=== PATIENT | female | born 2005 | race Two or more races ===

== ENCOUNTER 2025-03-19 21:30 | Emergency (ER) | payer MEDICAID, SELFPAY ==
[2025-03-19 21:32] VITALS: BMI 21.6
--- NOTE | 2025-03-19 21:45 | PC.NURSE ---
no answer in lobby when called for vital signs
--- NOTE | 2025-03-19 22:00 | PC.NURSE ---
no answer in lobby when called for vital signs
--- NOTE | 2025-03-19 22:23 | PC.NURSE ---
no answer in lobby when called for vital signs
[2025-03-19 22:36] VITALS: BP 102/66; PULSE 88; RESP 18; TEMP 36.9; O2SAT 99
[2025-03-19] MEDS: MethylPREDNISolone SOD SUCC 62.5 MG/ML 2ML VIAL 125 MG IM (23:04)
[2025-03-19] MEDS: DiphenhydrAMINE INJ 50 MG/ML VIAL 25 MG IM (23:04)
[2025-03-19] MEDS: FAMOTIDINE 20 MG TABLET 40 MG PO (23:05)
--- NOTE | 2025-03-19 23:26 | EDNOTE_ITS ---
ED Allergic Reaction RME/HPI General Chief complaint: Allergic Reaction Stated complaint: RASH AND HIVES EVERYWHERE Time Seen by Provider: 03/19/25 22:12 Arrival date/time: 03/19/25 21:30 This is a case of 19 year old female came in with generalized maculopapular rash all over the body since last night denies shortness of breath able to swallow no drooling of saliva no facial no throat swelling Limitations: no limitations Related Data Previous Rx's ?Medication ?Instructions ?Recorded diphenhydramine HCl 25 mg capsule 25 mg PO Q8H PRN all ergic reaction 03/19/25 (Benadryl) #20 caps famotidine 20 mg tablet (Pepcid) 20 mg PO BID 10 days #20 tabs 03/19/25 prednisone 20 mg tablet 20 mg PO QDAY 5 days #5 tabs 03/19/25 Allergies Allergy/AdvReac Type Severity Reaction Status Date / Time apricot Allergy Swelling Verified 03/19/25 21:32 of Lip/Tongue/Throat WASP Allergy SWELLING Uncoded 03/19/25 21:32 Review of Systems Review of Systems Systems Reviewed: All systems reviewed, normal except as documented Constitutional Constitutional: Reports system reviewed and no additional complaints, except as documented, Reports as per HPI, Denies chills and Denies fever(s) ENT Ears, Nose, Mouth, and Throat: Reports system reviewed and no additional complaints, except as documented and Reports as per HPI Cardiovascular Cardiovascular: Reports system reviewed and no additional complaints, except as documented, Denies chest pain and Denies dyspnea Respiratory Respiratory: Reports system reviewed and no additional complaints, except as documented, Reports as per HPI, Denies chest congestion, Denies cough and Denies dyspnea Musculoskeletal Musculoskeletal: Reports system reviewed and no additional complaints, except as documented and Reports as per HPI Integumentary/Breasts Skin/Breast: Reports rash Neurologic Neurologic: Reports system reviewed and no additional complaints, except as documented and Reports as per HPI Past Medical History Past Medical History NEUROLOGIC: Negative Neurological Disorders CARDIAC: Negative Cardiac Disorders GASTROINTESTINAL: Negative Gastrointestinal Disorders GENITOURINARY: Negative Genitourinary Disorders MUSCULOSKELETAL: Negative Musculoskeletal Disorders ENDOCRINE: Negative Endocrine Disorders Social History SMOKING STATUS: Never smoker ED Exam General Limitations: Present no limitations General appearance: Present alert and in no apparent distress; Absent appears intoxicated, anxious, lethargic or in distress Head Head exam: Present atraumatic, normocephalic and normal inspection Eye Eye exam: Present normal appearance, PERRL and EOMI; Absent conjunctival injection or periorbital swelling ENT ENT exam: Present normal exam, normal oropharynx, mucous membranes moist and other (no facial nor throat swelling) Neck Neck exam: Present normal inspection, full ROM and trachea midline; Absent tenderness or meningismus Chest Chest inspection: Present normal inspection and symmetric chest wall rise Respiratory Respiratory exam: Present normal lung sounds bilaterally; Absent respiratory distress, wheezes, stridor, accessory muscle use or prolonged expiratory phase Cardiovascular Cardiovascular exam: Present regular rate, normal rhythm and normal heart sounds Abdominal Exam Abdominal exam: Present soft and normal bowel sounds Extremities Exam Extremities exam: Present normal inspection and full ROM Back Exam Back exam: Present normal inspection and full ROM Neurological Exam Neurological exam: Present alert, oriented X3, CN II-XII intact, normal gait and reflexes normal; Absent motor sensory deficit Psychiatric Psychiatric exam: Present normal affect and normal mood Skin Skin exam: Present warm, dry, intact and normal color Expanded Skin Exam Description: Present erythematous, papular, urticarial and other (generalized) Course Quality Measures none Orders Category Date Time Status DiphenhydrAMINE INJ [Benadryl Inj] Med 03/19/25 22:41 Discontinued 25 mg IM X1 ONE Famotidine [Pepcid] Med 03/19/25 22:41 Discontinued 40 mg PO X1 ONE MethylPREDNISolone.* [SoluMEDROL Inj] Med 03/19/25 22:41 Discontinued 125 mg IM X1 ONE Vital Signs Vital signs: Vital Signs Temperature 98.5 F 03/19/25 22:36 Pulse Rate 88 03/19/25 22:36 Respiratory Rate 18 03/19/25 22:36 Blood Pressure 102/66 03/19/25 22:36 Pulse Oximetry (%) 99 03/19/25 22:36 Oxygen Delivery Method Room Air 03/19/25 22:36 Oxygen saturation 99% room air wnl Allergic Reaction MDM Narrative MDM Narrative:: This is a case of 19 year old female came in with generalized maculopapular rash all over the body since last night denies shortness of breath able to swallow no drooling of saliva no facial no throat swelling Physicial exam showed normal vital signs patient is not tacycardic not tacypneic blood pressure stable afebrile not hypoxic patient no apparent Generalized maculopapular urticaria rash is suggestive of allergy urticaria no facial or throat signs and symptoms of angioedema, anaphylaxis glossitis pain lab numbers no wheezing no stridor based on my physical exam patient symtoms suggestive of allergic urticaria patient was given Benadryl Pepcid and Solu-Medrol after 30 minutes patient was reassessed patient condition markedly improved that she has subsided no swelling no shortness of breath treatement Benadryl Pepcid and prednisone to start tomorrow patient will be referred to alelrgy specialist for alelrgy testing patient was disharged with comforatble conditionwith stable condition and pain fee. Walking stable Patient verbalized no further complain with the proposed management plan including the need to follow up with his/her primary care physician and and any specialist fif applicable. Discussed patient for any urgent condition or worsening sx He she needed to go to Emergency room of call 911 Patient is acknowledge the responsibility to follow up as instructed and to monitor his/her symptoms For any persistnce of the symtoms for more than 3-5 days retrun precaution advised Discussed the result of thetest and was given printed dsicahrge instruction Patient data External records reviewed:: [facility] previous records Clinical information provided by:: patient and family Social determinants that could affect healthcare access:: none Patient has the following chronic illnesses:: none How is presenting disease/condition affected by chronic disease/condition?: no c hronic disease Evaluation data The following diagnostics were reviewed and interpreted by me:: other (specify) (none) Lab and/or radiology exams considered but not ordered:: none Interpretation Summary: none Medications / Prescriptions Medications or Prescriptions considered but not ordered:: given Medication administrations:: Medication Administration History Discontinued Medications Diphenhydramine HCl (Diphenhydramine Inj 50 Mg/Ml Vial) 25 mg IM X1 ONE Stop: 03/19/25 22:42 Last Admin: 03/19/25 23:04 Dose: 25 mg Documented By: Famotidine (Famotidine 20 Mg Tablet) 40 mg PO X1 ONE Stop: 03/19/25 22:42 Last Admin: 03/19/25 23:05 Dose: 40 mg Documented By: Methylprednisolone Sodium Succinate (Methylprednisolone Sod Succ 62.5 Mg/Ml 2ml Vial) 125 mg IM X1 ONE Stop: 03/19/25 22:42 Last Admin: 03/19/25 23:04 Dose: 125 mg Documented By: given Consultations Consultation(s) initiated? (list below): No Diagnosis Differential Diagnosis allergic reaction: allergic reaction, contact dermatitis and urticaria Most likely diagnosis given after review of the tests above:: allergic urticaria Admission Indicated Admission indicated?: not indicated Explain why admission is indicated or not indicated:: not indicated Admission Request Was there a request for admission?: No Disposition Plan Disposition Plan: Discharge Discharge Attestation Discharge Attestation: The patient and all family members were given an opportunity to ask questions and understood the discharge instructions. Discharge instructions specifically effects, indications for sooner follow up or return to the emergency department, and the expected course of current diagnosis. Patient condition: Stable Discharge Plan Plan Patient Disposition: HOME (Self Care) Patient condition on transfer: Stable Prescriptions/Referrals Prescriptions/Med Rec: New prednisone 20 mg tablet 20 mg PO QDAY 5 Days Qty: 5 0RF Rx Instructions: start tomorrow diphenhydramine HCl [Benadryl] 25 mg capsule 25 mg PO Q8H PRN (Reason: allergic reaction) Qty: 20 0RF famotidine [Pepcid] 20 mg tablet 20 mg PO BID 10 Days Qty: 20 0RF Referrals: Margarito Mar MD [Physician] - 03/21/25 (for allergy testing) Problem List Clinical Impression: Allergic reaction, Urticaria Patient/Caregiver Discharge Instructions Education Materials: ED Hives (Adult) Additional Instructions: it is important to see customer energy specialist for allergy testing for any recurrence of the sx persistnce sx in 2 days return to er or call 911 ffup with pcp in 2 dyas for reevalaution Print Language: Khmer Stand Alone Forms: Alyssa Award Info., Work/School Release, Patient Portal Info Letter PA/URGENT CARE Supervising Physician NICANOR/URGENT CARE Supervising Physician: dr laura
== END 2025-03-20 00:30 | disposition home or self-care (01) ==
PROVIDERS: Emergency Provider Emergency Medicine
DX: L50.0 Allergic urticaria (principal)
CPT/HCPCS: 96372; 99283; J1200; J2919; A9270

== ENCOUNTER 2025-04-21 21:27 | Emergency (ER) | payer MEDICAID, SELFPAY ==
[2025-04-21 21:28] VITALS: BMI 21.2
[2025-04-21 21:42] VITALS: BP 121/72; PULSE 84; RESP 16; TEMP 36.9; O2SAT 97
--- NOTE | 2025-04-21 21:43 | XR_ITS ---
Examination: Thoracolumbar spine 2 views TECHNIQUE: AP lateral thoracolumbar spine 2 views Date and time: April 21, 2025 10:44 PM INDICATIONS: Left lower back pain 1 month FINDINGS: Satisfactory alignment lumbar vertebral bodies No lumbar fracture No significant lumbar disc narrowing No spondylolisthesis IMPRESSION: No lumbar fracture or arthritic change
--- NOTE | 2025-04-21 21:44 | EDNOTE_ITS ---
ED Back Injury Pain RME/HPI General Stated Complaint: BACK PAIN Time Seen by Provider: 04/21/25 21:35 Source: patient Arrival date/time: 04/21/25 21:27 This is a case of 19-year-old female with no medical history came in in the emergency room due to lower back pain on and off for 1 month denies any injury or trauma denies any radiating pain denies any numbness weakness tingling sensation or incontinence to urine or stool denies any fever chills denies any urinary symptoms Limitations: no limitations Related Data Previous Rx's ?Medication ?Instructions ?Recorded diphenhydramine HCl 25 mg capsule 25 mg PO Q8H PRN all ergic reaction 03/19/25 (Benadryl) #20 caps baclofen 10 mg tablet 10 mg PO BID PRN muscle spas m #10 04/21/25 tabs ibuprofen 600 mg tablet 600 mg PO Q6H PRN pain #20 t abs 04/21/25 Allergies Allergy/AdvReac Type Severity Reaction Status Date / Time apricot Allergy Swelling Verified 04/21/25 21:34 of Lip/Tongue/Throat WASP Allergy SWELLING Uncoded 04/21/25 21:34 Review of Systems Constitutional Constitutional: Reports system reviewed and no additional complaints, except as documented and Reports as per HPI ENT Ears, Nose, Mouth, and Throat: Denies neck pain Cardiovascular Cardiovascular: Reports system reviewed and no additional complaints, except as documented and Reports as per HPI Respiratory Respiratory: Reports system reviewed and no additional complaints, except as documented and Reports as per HPI Gastrointestinal Gastrointestinal: Reports system reviewed and no additional complaints, except as documented, Reports as per HPI, Denies abdominal pain, Denies loose stools, Denies nausea and Denies vomiting Genitourinary Genitourinary: Reports system reviewed and no additional complaints, except as documented, Reports as per HPI, Denies dysmenorrhea, Reports dyspareunia and Denies dysuria Musculoskeletal Musculoskeletal: Reports system reviewed and no additional complaints, except as documented, Reports as per HPI, Denies abnormal gait, Denies arthralgias, Denies atrophy, Denies back pain, Denies deformity, Denies joint swelling, Denies limited range of motion, Denies loss of height, Denies muscle cramps, Denies muscle weakness, Denies myalgias, Denies neck pain, Denies numbness, Denies radiating pain into limb and Denies stiffness Neurologic Neurologic: Reports system reviewed and no additional complaints, except as documented, Reports as per HPI, Denies abnormal gait and Denies numbness Past Medical History Past Medical History NEUROLOGIC: Negative Neurological Disorders CARDIAC: Negative Cardiac Disorders GASTROINTESTINAL: Negative Gastrointestinal Disorders GENITOURINARY: Negative Genitourinary Disorders MUSCULOSKELETAL: Negative Musculoskeletal Disorders ENDOCRINE: Negative Endocrine Disorders Social History SMOKING STATUS: Never smoker ED Exam General Limitations: Present no limitations General appearance: Present alert and in no apparent distress Head Head exam: Present atraumatic, normocephalic and normal inspection Eye Eye exam: Present normal appearance, PERRL and EOMI ENT ENT exam: Present normal exam, normal oropharynx and mucous membranes moist Neck Neck exam: Present normal inspection, full ROM and trachea midline Chest Chest inspection: Present normal inspection and symmetric chest wall rise; Absent tenderness, rash or abscess Respiratory Respiratory exam: Present normal lung sounds bilaterally; Absent respiratory distress, wheezes, stridor, accessory muscle use or prolonged expiratory phase Cardiovascular Cardiovascular exam: Present regular rate, normal rhythm and normal heart sounds Abdominal Exam Abdominal exam: Present soft, normal bowel sounds and pulsatile mass; Absent distention, tenderness, guarding, rebound, rigidity, diminished bowel sounds, hyperactive bowel sounds, hypoactive bowel sounds, organomegaly, trauma, psoas sign, obturator sign, Vela's sign or tenderness at McBurney's Point Extremities Exam Extremities exam: Present normal inspection and full ROM Back Exam Back exam: Present normal inspection, full ROM and tenderness (Mild tenderness to L1 L5 no paraspinal no para paravertebral tenderness steady gait straight leg exam is normal no crepitation no deformity noted); Absent CVA tenderness (R), CVA tenderness (L), muscle spasm, paraspinal tenderness, vertebral tenderness, rashes, sciatic notch tenderness (R), sciatic notch tenderness (L), straight leg raise (R) or straight leg raise (L) Neurological Exam Neurological exam: Present alert, oriented X3, CN II-XII intact, normal gait and reflexes normal; Absent motor sensory deficit Psychiatric Psychiatric exam: Present normal affect and normal mood Skin Skin exam: Present warm, dry, intact and normal color Course Quality Measures none Orders Category Date Time Status XR lumbar spine 2-3V Stat Exams 04/21/25 21:43 Taken HCG Qualitative,Urine Stat Lab 04/21/25 22:15 Completed Urinalysis Stat Lab 04/21/25 22:15 Completed Dexamethasone Inj [Decadron Inj] Med 04/21/25 23:09 Discontinued 10 mg IM X1 ONE Ketorolac Inj [Toradol Inj] Med 04/21/25 23:09 Discontinued 30 mg IM X1 ONE Vital Signs Vital signs: Vital Signs Temperature 98.4 F 04/21/25 21:42 Pulse Rate 84 04/21/25 21:42 Respiratory Rate 16 04/21/25 21:42 Blood Pressure 121/72 04/21/25 21:42 Pulse Oximetry (%) 97 04/21/25 21:42 Oxygen Delivery Method Room Air 04/21/25 21:42 Oxygen saturation 97% in room air Back Pain / Injury MDM Narrative MDM Narrative:: This is a case of 19-year-old female with no medical history came in in the emergency room due to lower back pain on and off for 1 month denies any injury or trauma denies any radiating pain denies any numbness weakness tingling sensation or incontinence to urine or stool denies any fever chills denies any urinary symptoms physical examination patient is awake alert oriented not in distress not toxic looking patient is afebrile not Tachycardic not tachypneic not hypoxic oxygen saturation is normal patient noted to have mild to moderate tenderness on the L1-L5 but no paraspinal no para paravertebral tenderness no crepitation no deformity no redness straight leg exam is normal steady gait no CVA tenderness x-ray showed no fracture no dislocation no subluxation patient is not urinalysis is normal at this point patient will be discharged as some back muscle spasm patient was given a Toradol IM injection and dexamethasone IM injection for pain and inflammation patient was prescribed with Motrin and muscle relaxant baclofen patient was advised to place ice pack and warm compress as needed for pain and follow-up with primary care physician in 2 days for reevaluation and for any worsening symptoms or any emergent concerns such as numbness weakness tingling sensation incontinence to urine or stool return to the ER immediately or call 911 at the time of exam no signs and symptoms of cauda equina no signs and symptoms of sepsis no signs and symptoms of dehydration Patient was discharged with comfortable condition walking with stable gait. Patient verbalized no further complains explained diagnosis and answered patient question. Patient is comfortable with the proposed management plan including the need to follow up with his/her primary care physician and any specialist if applicable Discussed patient for any urgent condition or worsening sx, He/She needed to go to emergency room immediately or call 911. Patient acknowledge the responsibility to follow up as instructed and to monitor her/his symptoms. For any persistence of the symptoms for more than 3-5 days return precaution advised. Discussed the result of the test and was given printed discharge instruction Patient data External records reviewed:: [facility] previous records Clinical information provided by:: patient Social determinants that could affect healthcare access:: none Patient has the following chronic illnesses:: None How is presenting disease/condition affected by chronic disease/condition?: no chronic disease Evaluation data The following diagnostics were reviewed and interpreted by me:: lab results and radiology exam(s) Lab and/or radiology exams considered but not ordered:: Reviewed Interpretation Summary: Reviewed Medications / Prescriptions Medications or Prescriptions considered but not ordered:: Given Medication administrations:: Medication Administration History Discontinued Medications Dexamethasone Sodium Phosphate (Dexamethasone Sod Phos Inj 10 Mg/Ml Vial) 10 mg IM X1 ONE Stop: 04/21/25 23:10 Ketorolac Tromethamine (Ketorolac Inj 60 Mg/2 Ml Vial) 30 mg IM X1 ONE Stop: 04/21/25 23:10 Given Consultations Consultation(s) initiated? (list below): No Diagnosis Differential diagnosis back pain/injury: other (Back muscle spasm) Most likely diagnosis given after review of the tests above:: Back muscle spasm Admission Indicated Admission indicated?: not indicated Explain why admission is indicated or not indicated:: Not indicated Admission Request Was there a request for admission?: No Admission Attestation Admission request attestation: Not indicated Disposition Plan Disposition Plan: Discharge Discharge Attestation Discharge Attestation: The patient and all family members were given an opportunity to ask questions an d understood the discharge instructions. Discharge instructions specifically effects, indications for sooner follow up or return to the emergency department, and the expected course of current diagnosis. Patient condition: Stable Discharge Plan Plan Patient Disposition: HOME (Self Care) Patient condition on transfer: Stable Prescriptions/Referrals Prescriptions/Med Rec: New ibuprofen 600 mg tablet 600 mg PO Q6H PRN (Reason: pain) Qty: 20 0RF baclofen 10 mg tablet 10 mg PO BID PRN (Reason: muscle spasm) Qty: 10 0RF Rx Instructions: No driving No Action diphenhydramine HCl [Benadryl] 25 mg capsule 25 mg PO Q8H PRN (Reason: allergic reaction) Qty: 20 0RF Referrals: Raul Matias MD [Primary Care Provider] - In 1 week Problem List Clinical Impression: Back muscle spasm Patient/Caregiver Discharge Instructions Education Materials: ED Back Spasm, No Trauma, ED Muscle Spasm Additional Instructions: Follow-up with your primary care physician in 2 days for reevaluation for any worsening symptoms or any emergent concerns such as numbness weakness tingling sensation incontinence to urinate or stool return to the emergency room immediately or call 911 ice pack and warm compress as needed for pain take your medication as directed Print Language: Vietnamese Stand Alone Forms: Alyssa Award Info., Patient Portal Info Letter PA/NOE Supervising Physician NICANOR/NOE Supervising Physician: dr burns
[2025-04-21 22:25] LABS: Collection Type, Urine Voided
[2025-04-21 22:33] LABS: HCG Qualitative,Urine Negative
[2025-04-21 22:39] LABS: Bilirubin,Urine Negative (Negative); Blood,Urine 3+ (Negative); Clarity,Urine Clear (Clear/Hazy); Color,Urine Yellow (Lt Yel-Yel); Glucose, Urine Negative (Negative); Hyaline Casts,Urine < 1 /hpf (0-1); Ketones,Urine Trace (Negative); Leukocyte Esterase,Urine Negative (Negative); Nitrite,Urine Negative (Negative); PH,Urine 6.5 (5.0-7.0); Protein,Urine 2+ (Neg - Trace); RBC,Urine 23 /hpf (0-3); Specific Gravity,Urine 1.049 (1.001-1.035); Squamous Epithelial Cell,Urine 3 /hpf (0-5); WBC,Urine 2 /hpf (0-5)
[2025-04-21] MEDS: DEXAMETHASONE SOD PHOS INJ 10 MG/ML VIAL IM (23:33)
[2025-04-21] MEDS: KETOROLAC INJ 60 MG/2 ML VIAL 30 MG IM (23:33)
== END 2025-04-21 23:49 | disposition home or self-care (01) ==
PROVIDERS: Nurse Practitioner Family; Emergency Provider Emergency Medicine; PCP Family Medicine
DX: M62.830 Muscle spasm of back (principal)
CPT/HCPCS: 72100; 81001; 81025; 96372; 99283; J1100; J1885

== ENCOUNTER 2025-08-23 10:30 | Outpatient (RCR) | payer MEDICAID, SELFPAY ==
--- NOTE | 2025-08-16 15:10 | PT.OIERPT ---
PT OP Initial Eval Patient Information Outpatient Physical Therapy Treatment Date: 08/16/25 Visit Reasons: back pain Medical Diagnosis: M54.42 Treatment Dx #1: Back Pain Treatment Dx #2: Left LE Pain Start of Care: 08/16/25 Date of Onset: March 2025 Smoking Status Smoking Status: Never smoker Initial Assessment Subjective: Pt is a 20 y/o female reports of back and left LE pain (05/09) [place] Pt still has intermittent pain adn numbness down the left leg. Pt's xray negative no MRI has been done. Pt has limitation with prolonged sitting, standing, chores, self care, lifting, cooking, walking, and performing recreational activities. Objective: L/S AROM: all motions are WFL except pain with end range extension and right sidebending Hip PROM: all motions are WNL Hip MMTs: grossly 3+/5 Special Test (+) SLR (+) slump Palpation: TTP left L4-L5 facets Assessment: Pt demonstrate back pain leading with possible discogenic involvement leading to difficulty with ADLs. Pt will benefit from physical therapy to improve mobility, core strength, and work on flexibility Short Term and Physician Relations Representative Goals 1) Increase L/S AROM WNL in 6 wks to be able to perform chores 2) Decrease back pain to 2/10 in 6 wks to be able to sit or stand longer than 30 mins 3) Increase core strength WFL in 6 wks to be able to perform recreational activities 4) Increase hip MMTs grossly to 4-/5 in 6 wks to be able to walk more than 30 mins 5) Indep with HEP Treatment Plan 1) Manual Therapy 2) Therapeutic Activities 3) Therapeutic Exercises 4) Modalities (ice, heat, traction) Frequency and Duration: 2 x wk for 6 wks Certification Dates: 08/16/25 to 11/16/25 Procedure Charges OP PT Eval Mod Complex 30 minutes: Yes
--- NOTE | 2025-08-21 09:54 | PT.ODAYNRPT ---
PT Outpatient Daily Note OP Daily Note Outpatient Physical Therapy Treatment Date: 08/21/25 Visit Reasons: back pain Subjective: Pt's back is okay, however, continues to experience pain. Objective: Please see flow chart for list of ther ex performed Assessment: supine heat helped patient tolerate exercises Plan: Continue with PT Length of Time (minutes) of Treatment: 30 Minutes Procedure Charges Therapeutic Exercise 30 minutes: Yes
--- NOTE | 2025-08-23 11:52 | PT.ODAYNRPT ---
PT Outpatient Daily Note OP Daily Note Outpatient Physical Therapy Treatment Date: 08/23/25 Visit Reasons: back pain Subjective: Pt's back was really sore after last session. Pt mentioned the nerve floss is what made the leg hurt more Objective: Please see flow chart for list of ther Assessment: tolerate exercises with minimal pain; patient encourage to complete nerve floss exercises today to alleviate radicular pain Plan: Continue with PT Length of Time (minutes) of Treatment: 30 Minutes Procedure Charges Therapeutic Exercise 30 minutes: Yes
== END 2025-08-30 23:59 | disposition home or self-care (01) ==
LOC: CPTX 10:30
PROVIDERS: PCP Registered Nurse; Referring Provider Registered Nurse; Visit Provider Registered Nurse
DX: M54.42 Lumbago with sciatica, left side (principal)
CPT/HCPCS: 97110; 97162

== ENCOUNTER 2025-09-09 13:00 | Outpatient (RCR) | payer MEDICAID, SELFPAY ==
--- NOTE | 2025-09-02 09:56 | PT.ODAYNRPT ---
PT Outpatient Daily Note OP Daily Note Outpatient Physical Therapy Treatment Date: 09/02/25 Visit Reasons: Back pain Subjective: Pt's back is the same and tough to get better since she has a little one to take care of. Pt continues to have intense pain where she needs to stop her activities; recently she had to sinker puller while driving. Pt has not experience leg pain lately. Objective: Please see flow chart for list of ther ex performed Assessment: minimal change in lumbar pain post STM; patient reports more muscle soreness post PT session and decline heat since it doesn't help with symptoms. Plan: Continue with PT Length of Time (minutes) of Treatment: 30 Minutes Procedure Charges Therapeutic Exercise 30 minutes: Yes
--- NOTE | 2025-09-04 09:48 | PT.ODAYNRPT ---
PT Outpatient Daily Note OP Daily Note Outpatient Physical Therapy Treatment Date: 09/04/25 Visit Reasons: Back pain Subjective: Pt's back was sore after last session but it felt a little better. Pt mentioned STM seems to help the pain and stiffness. Objective: Please see flow chart for list of ther ex performed Assessment: decrease pain reported post PT session. Pt's nerve floss modified to sitting with better tolerance to exercise Plan: Continue with PT Length of Time (minutes) of Treatment: 30 Minutes Procedure Charges Therapeutic Exercise 30 minutes: Yes
--- NOTE | 2025-09-09 14:07 | PT.ODAYNRPT ---
PT Outpatient Daily Note OP Daily Note Outpatient Physical Therapy Treatment Date: 09/09/25 Visit Reasons: Back pain Subjective: Pt reports back is hurting today, points to L low back region. Objective: Please see flow sheet for ther ex list. Assessment: Added interventions completed with minimal pain. Plan: Assess response to treatment., Length of Time (minutes) of Treatment: 30 Minutes Procedure Charges Therapeutic Exercise 30 minutes: Yes
--- NOTE | 2025-10-01 13:05 | PT.ODS1RPT ---
PT OP Progress/Discharge Note Date of Service: 10/01/25 Progress Note/DC Note Progress Note/Discharge Note: DC Note Patient Information Visit Reasons: Back pain Service Discharge Date: 10/01/25 Status Assessment: Pt has been seen for 5 visits (eval + 4 visits). Pt last treated on 09/09/25. Pt contact regarding follow up appts 10/01/25 and will like to be d/c from care. Pt did not meet set goals in therapy; thank you for your referrals
== END 2025-09-29 23:59 | disposition home or self-care (01) ==
LOC: CPTX 13:00
PROVIDERS: PCP Registered Nurse; Referring Provider Registered Nurse; Visit Provider Registered Nurse
DX: M54.42 Lumbago with sciatica, left side (principal); R26.2 Difficulty in walking, not elsewhere classified
CPT/HCPCS: 97110

== ENCOUNTER 2025-09-11 22:54 | Emergency (ER) | payer MEDICAID, SELFPAY ==
[2025-09-11 22:55] VITALS: BMI 21.6
[2025-09-11 23:21] VITALS: BP 115/71; PULSE 76; RESP 16; TEMP 37; O2SAT 97
--- NOTE | 2025-09-11 23:40 | EDNOTE_ITS ---
ED OB Contraction Preg RMI/HPI General Chief complaint: Vaginal Bleeding Stated complaint: VAGINAL BLEEDING, Time Seen by Provider: 09/11/25 23:25 Arrival date/time: 09/11/25 22:54 RME / HPI RME / HPI Narrative: CC: Vaginal Bleeding/ Patient is a 20-year-old female limited past medical history G2, P0 who presented to the emergency room with a chief complaint of vaginal bleeding that started this morning. Visiting her [employer] about 2 weeks ago and confirmed the testing positive in urine and serum. Patient stated she has had a previous testing positive with a home kit and shortly after experiencing vaginal bleeding as well and subsequently testing negative for . Patient stated she developed bilateral pelvic pain that is sharp and comes and goes. Last known. September 01, 2025. Patient did experience some vaginal discharge that was brown but not foul-smelling. Patient denied history of ectopic pregnancies. Two previous pads have been full. Denied history of STI. CBC CMP Beta hcg Rh vaginal US Related Data Previous Rx's ?Medication ?Instructions ?Recorded diphenhydramine HCl 25 mg capsule 25 mg PO Q8H PRN all ergic reaction 03/19/25 (Benadryl) #20 caps baclofen 10 mg tablet 10 mg PO BID PRN muscle spas m #10 04/21/25 tabs ibuprofen 600 mg tablet 600 mg PO Q6H PRN pain #20 t abs 04/21/25 Allergies Allergy/AdvReac Type Severity Reaction Status Date / Time apricot Allergy Swelling Verified 09/11/25 22:55 of Lip/Tongue/Throat WASP Allergy SWELLING Uncoded 09/11/25 22:55 Review of Systems Review of Systems Narrative Review of Systems: General appearance: NO weight change, NO fatigue, NO weakness, NO fever, NO chills, NO night sweats, No cough Skin: NO rash, NO itching, NO sores, NO moles HEENT: NO Trauma, NO nausea, NO vomiting, NO visual changes, NO blurry vision, NO double vision, NO tinnitus, NO vertigo, NO ear discharge, NO rhinorrhea, NO stuffiness, NO sneezing, NO allergy, NO epistaxis. NO Hoarseness, NO sore throat, NO swollen neck. Cardiac: NO Palpitations, NO dyspnea on exertion, NO orthopnea, NO paroxysmal nocturnal dyspnea, NO edema Respiratory: NO Shortness of Breath, NO Wheezing, NO Cough, NO Sputum, NO hemoptysis GI:NO appetite, NO nausea, NO vomiting, NO dysphagia, NO changes in bowel frequency, NO stool color, NO diarrhea, NO constipation, NO hemetemesis, NO hemorrhoids, NO melena, NO hematechezia, NO abdominal pain, NO jaundice Renal: NO frequency, NO hesitancy, NO urgency, NO hematuria, NO nocturia, NO incontinence MSK: NO muscle weakness, NO gout, NO arthritis, NO muscle stiffness Neuro: NO headaches, NO tremors, NO weakness, NO paralysis, NO seizures, NO loss of consciousness, NO numbness. Hem: NO anemia, NO easy bruising/bleeding, NO petechiae, NO purpura Endo: NO heat/cold intolerance, NO excessive sweating, NO polyuria, NO polydipsia, NO polyphagia, NO thyroid problems, NO diabetes Pysch: NO mood, NO anxiety, NO depression : Vaginal bleeding, brown discharge, not foul smelling ED Exam Narrative Physical exam: General Appearance: Alert & Oriented X3, well-nourished female who is lying in bed in no acute distress HEENT: Skull symmetrical and atraumatic. Conjunctivae pink and moist. Pupils equal, round, reactive to light and accommodation (PERRL). External ear without lesion or discharge. Straight, nares patient, mucosa pink, no discharge. Cardio: Normal Rate and Rhythm with S1 and S2 heart sounds. No murmurs or extra heart sounds auscultated. No bruits on carotid auscultation. No peripheral edema or cyanosis. Lungs: Symmetric with good expansion. Chest and back non-tender. Breath sounds vesicular without crackles, wheezing or rhonchi Abdomen: mild tenderness, Non-distended, Normal Reactive Bowel Sounds Neuro: Alert, cooperative, oriented to person, place, and time. Speech clear. CN grossly intact. Upper motor strength 5/5 and Lower motor strength 5/5. Sensation intact. W[employer] SORTER: spotting noted on vaginal area, spotting noted on pad, no lesions or ulcers noted Course Course Course Narrative: CBC CMP RH beta hcg vaginal us Quality Measures none Orders Category Date Time Status US OB <= 14 weeks fetus Stat Exams 09/12/25 00:00 Taken Beta HCG,Quantitative Stat Lab 09/11/25 23:28 Completed CBC Stat Lab 09/11/25 23:28 Completed CMP [Comprehensive Metabolic Panel] Stat Lab 09/11/25 23:28 Completed Rh Testing Only Stat Lab 09/11/25 23:32 Completed Urinalysis, C/S if Indicated Stat Lab 09/11/25 23:19 Completed Vital Signs Vital signs: Vital Signs Temperature 98.6 F 09/11/25 23:21 Pulse Rate 76 09/11/25 23:21 Respiratory Rate 16 09/11/25 23:21 Blood Pressure 115/71 09/11/25 23:21 Pulse Oximetry (%) 97 09/11/25 23:21 Oxygen Delivery Method Room Air 09/11/25 23:21 Vaginal Bleeding Patient data External records reviewed:: [facility] previous records Clinical information provided by:: patient Social determinants that could affect healthcare access:: none Patient has the following chronic illnesses:: None How is presenting disease/condition affected by chronic disease/condition?: no chronic disease Evaluation data The following diagnostics were reviewed and interpreted by me:: lab results and radiology exam(s) (US vaginal ) Lab and/or radiology exams considered but not ordered:: None Interpretation Summary: Patient is a 20 year old female with a limited past medical history who presented with chief complain of vaginal bleeding. Previous that ended in a spontaneous . Recently tested positive in OBGYN office for . Beta HCG positive at 265. US transvaginal, noted intrauterine . Main diagnosis, vaginal bleeding, no contractions noted, consider threated spotaneous . Patient will need to follow up with OBGYN closely. - The patient's plan was discussed with attending Dr Sylvie Rapp MD PGY2 Internal Medicine Medications / Prescriptions Medications or Prescriptions considered but not ordered:: none Medication administrations:: none Consultations Consultation(s) initiated? (list below): No Diagnosis Vaginal Bleeding Differential Diagnosis: missed , dysfunctional uterine bleeding, incomplete , ectopic without intrauterine and vaginal bleeding Most likely diagnosis given after review of the tests above:: Patient is a 20 year old female with a limited past medical history who presented with chief complain of vaginal bleeding. Previous that ended in a spontaneous . Recently tested positive in OBGYN office for . Beta HCG positive at 265. US transvaginal, noted intrauterine . Main diagnosis, vaginal bleeding, no contractions noted, consider threated spotaneous . Patient will need to follow up with OBGYN closely. #Vaginal Bleeding Admission Indicated Admission indicated?: not indicated Admission Request Was there a request for admission?: No Disposition Plan Disposition Plan: Discharge Discharge Attestation Discharge Attestation: The patient and all family members were given an opportunity to ask questions and understood the discharge instructions. Discharge instructions specifically effects, indications for sooner follow up or return to the emergency department, and the expected course of current diagnosis. Patient condition: Stable Discharge Plan Plan Patient Disposition: HOME (Self Care) Patient condition on transfer: Stable Health Concerns: 1.? After evaluation, your diagnosis is Threatened Miscarriage. 2.? On ultrasound, there is no obvious . We may be too early to see on ultrasound. You may be having a miscarriage. 3.? Only time will tell what will happen. If your symptoms, including bleeding, worsen, you can have a miscarriage. If your symptoms stop, you can have successful . 4.? If you do have a miscarriage, we won't be able to save your baby. Under 20-24 weeks, we can't save the baby. 5.? No sexual activity until cleared by a doctor taking care of you. 6.? See a private doctor on 09/16/2025 for recheck and further care. Ask to review all test results and official radiology reports, to make sure you receive all necessary follow-ups and monitoring. Your hCG ( hormone level) was 265.? This doubles every few days in normal . Ask for help with repeat ultrasound (but not too early or it won't be helpful). 7.? Seek immediate medical care with intolerable pain, extremely heavy vaginal bleeding (soaking more than 3 pads per hour), or with any concerns. Prescriptions/Referrals Prescriptions/Med Rec: Continued diphenhydramine HCl [Benadryl] 25 mg capsule 25 mg PO Q8H PRN (Reason: allergic reaction) Qty: 20 0RF ibuprofen 600 mg tablet 600 mg PO Q6H PRN (Reason: pain) Qty: 20 0RF baclofen 10 mg tablet 10 mg PO BID PRN (Reason: muscle spasm) Qty: 10 0RF Rx Instructions: No driving Problem List Clinical Impression: Vaginal bleeding, Threatened Patient/Caregiver Discharge Instructions Education Materials: Comfort Tips During Print Language: Chinese Stand Alone Forms: Alyssa Award Info., Patient Portal Info Letter
[2025-09-11 23:58] LABS: Collection Type, Urine Clean Catch
--- NOTE | 2025-09-12 | XR_ITS ---
Examination: Complete OB ultrasound, less than 14 weeks, transabdominal Date and time of exam: September 12, 2025, 0020 hours INDICATIONS: Pelvic cramping and vaginal bleeding onset today. Technique: Obstetrical ultrasound images less than 14 weeks performed via transabdominal imaging Findings: Uterus 6.5 cm no uterine mass or intrauterine gestation Endometrial stripe 0.2 cm Ovaries obscured by bowel gas IMPRESSION: Limited study No uterine mass or intrauterine gestation
[2025-09-12 00:05] LABS: Amorphous Crystals,Urine Present (Absent); Bilirubin,Urine Negative (Negative); Blood,Urine 2+ (Negative); Clarity,Urine Clear (Clear/Hazy); Color,Urine Colorless (Lt Yel-Yel); Culture Indicated,Urine Not Indicated; Glucose, Urine Negative (Negative); Ketones,Urine Negative (Negative); Leukocyte Esterase,Urine Negative (Negative); Nitrite,Urine Negative (Negative); PH,Urine 7.0 (5.0-7.0); Protein,Urine Negative (Neg - Trace); RBC,Urine 11 /hpf (0-3); Specific Gravity,Urine 1.014 (1.001-1.035); Squamous Epithelial Cell,Urine < 1 /hpf (0-5); Urobilinogen,Urine Negative mg/dL (0.0-1.0); WBC,Urine 2 /hpf (0-5)
[2025-09-12 00:11] LABS: Basophils # (Auto) 0.1 Thou/mm3 (0.0-0.2); Basophils % (Auto) 1 % (0-2.5); Eosinophils # (Auto) 0.3 Thou/mm3 (0.0-0.5); Eosinophils % (Auto) 3 % (0-10); Hematocrit 36.6 % (36.0-46.0); Hemoglobin 12.6 g/dL (12.0-16.0); Immature Granulocytes Auto 0.03 Thou/mm3 (0.00-0.00); Lymphocytes # (Auto) 2.8 Thou/mm3 (1.0-4.8); Lymphocytes % (Auto) 32 % (10-50); Mean Corpuscular HGB Conc 34.4 g/dl (31.0-37.0); Mean Corpuscular Hemoglobin 30.5 pg (25.0-35.0); Mean Corpuscular Volume 89 fL (80-100); Monocytes # (Auto) 0.7 Thou/mm3 (0.0-0.8); Monocytes % (Auto) 8 % (0-12); Neutrophils # (Auto) 4.7 Thou/mm3 (1.8-7.7); Neutrophils % (Auto) 55 % (37-80); Nucleated Red Blood Cell # 0.00 Thou/mm3 (0.00-0.00); Nucleated Red Blood Cell % 0 /100 WBC (0); Platelet Count 266 Thou/mm3 (140-440); RDW Standard Deviation 40.3 fL (36.4-46.3); Red Blood Count 4.13 Miln/mm3 (4.00-5.20); White Blood Count 8.5 Thou/mm3 (4.5-11.0)
[2025-09-12 00:41] LABS: Alanine Aminotransferase 9 U/L (10-49); Albumin, Serum 4.6 gm/dL (3.5-5.0); Albumin/Globulin Ratio 1.6 (1.2-2.2); Alkaline Phosphatase 69 U/L (46-116); Anion Gap 7 (7-16); Aspartate Amino Transferase < 8 U/L (0-34); BUN/Creatinine Ratio 11 Ratio (12-20); Beta HCG,Quantitative 265 mIU/mL (<5.0); Bilirubin,Total 0.4 mg/dL (0.3-1.2); Blood Urea Nitrogen 9 mg/dL (9-23); Calcium 9.8 mg/dL (8.3-10.6); Calcium (Corrected) 9.8 mg/dL (8.5-10.1); Carbon Dioxide 25.2 mMol/L (20.0-31.0); Chloride 107 mMol/L (98-107); Creatinine (Component) 0.8 mg/dL (0.6-1.3); Estimated Creatinine Clearance 100.9 mL/min (>60); Globulin 2.9 gm/dL (2.3-3.5); Glucose 88 mg/dL (74-106); Osmolality,Calculated 275 (275-295); Potassium 3.8 mMol/L (3.4-5.1); Sodium 139 mMol/L (136-145); Total Protein 7.5 gm/dL (5.7-8.2); eGFR > 60 See Note
--- NOTE | 2025-09-12 01:24 | PRELIM_ITS ---
Pelvic ultrasound (transabdominal). September 12, 2025 at 0025 hours Clinical history: Vaginal bleeding. HCG: Pending. No prior study is available for comparison. Findings: The uterus is anteverted and normal in size measuring 6.5 x 2.7 x 4.9 cm. The endometrium is unremarkable and measures 0.2 cm. The cervix measures 2.5 cm. No intrauterine gestational sac is seen at this time. The ovaries are not visualized. No adnexal mass is demonstrated. There is no free fluid. Impression: No evidence of intrauterine gestation at this time. Possibilities include very early intrauterine , recent or occult ectopic gestation. Recommend correlation with serum beta hCG and follow up. Ovaries not visualized. Report Electronically Signed By: Austin Pham 09/12/2025 1:23:38 AM [EST]
[2025-09-12 01:39] VITALS: BP 113/76; PULSE 78; RESP 18; O2SAT 100
== END 2025-09-12 01:43 | disposition home or self-care (01) ==
PROVIDERS: Emergency Provider Emergency Medicine
DX: O20.0 Threatened abortion (principal); Z3A.14 14 weeks gestation of pregnancy
CPT/HCPCS: 36415; 76801; 80053; 81001; 84702; 84703; 85025; 86901; 99283

== ENCOUNTER 2025-09-18 21:11 | Emergency (ER) | payer MEDICAID, SELFPAY ==
[2025-09-18 21:12] VITALS: BMI 21.6
[2025-09-18 21:31] VITALS: BP 112/78; PULSE 96; RESP 18; TEMP 36.7; O2SAT 99
--- NOTE | 2025-09-18 21:33 | XR_ITS ---
Examination: OB Transvaginal ultrasound of the pelvis, complete Technique: Transvaginal sonographic images pelvis performed using polo scale imaging Exam date and time: September 18, 2025, 2140 hours INDICATIONS: Vaginal bleeding beginning 1 week ago FINDINGS: Uterus 7.3 cm No intrauterine gestation Endometrial stripe 12 mm Right ovary 3.7 cm arterial flow Left ovary 5.7 cm arterial flow, 4.9 x 3.4 x 4.7 cm cyst with internal debris Mild fluid in the cul-de-sac Impression: No uterine mass or intrauterine gestation Left ovarian 4.9 x 3.4 x 4.7 cm cyst with internal echoes, complex cyst, clinical correlation advised, recommend 3-month follow-up pelvic sonography.
--- NOTE | 2025-09-18 21:35 | PD.EDVAGBL ---
ED OB Contraction Preg RMI/HPI General Chief complaint: Vaginal Bleeding Stated complaint: APPROX 5 WKS , VAG BLEEDING Time Seen by Provider: 09/18/25 21:31 Arrival date/time: 09/18/25 21:11 20F at approximately 5 weeks and with no significant PMH presents to ED with pelvic pain and vaginal spotting. Patient was here last week for similar complaint. Patient denies dysuria and vaginal discharge. Blood type from previous visit is RH+. Limitations: no limitations Related Data Previous Rx's ?Medication ?Instructions ?Recorded diphenhydramine HCl 25 mg capsule 25 mg PO Q8H PRN allergic reaction 03/19/25 (Benadryl) #20 caps baclofen 10 mg tablet 10 mg PO BID PRN muscle spasm #10 04/21/25 tabs ibuprofen 600 mg tablet 600 mg PO Q6H PRN pain #20 tabs 04/21/25 Allergies Allergy/AdvReac Type Severity Reaction Status Date / Time apricot Allergy Swelling Verified 09/11/25 22:55 of Lip/Tongue/Throat WASP Allergy SWELLING Uncoded 09/11/25 22:55 Review of Systems Review of Systems Systems Reviewed: All systems reviewed, normal except as documented Genitourinary Genitourinary: Reports as per HPI, Reports abnormal vaginal bleeding and Reports pelvic pain Past Medical History Past Medical History NEUROLOGIC: Negative Neurological Disorders CARDIAC: Negative Cardiac Disorders or Congestive Heart Failure RESPIRATORY: Negative Chronic Obstructive Pulmonary Disease (COPD) GASTROINTESTINAL: Negative Gastrointestinal Disorders GENITOURINARY: Negative Genitourinary Disorders or Renal Disease MUSCULOSKELETAL: Negative Musculoskeletal Disorders ENDOCRINE: Negative Endocrine Disorders, Diabetes Mellitus Type 1 or Diabetes Mellitus Type 2 Social History SMOKING STATUS: Never smoker ED Exam General Limitations: Present no limitations General appearance: Present alert and in no apparent distress Head Head exam: Present atraumatic Neck Neck exam: Present normal inspection, full ROM and trachea midline Chest Chest inspection: Present normal inspection and symmetric chest wall rise Psychiatric Psychiatric exam: Present normal affect and normal mood Skin Skin exam: Present warm, dry, intact and normal color Course Quality Measures none Orders Category Date Time Status US OB transvaginal Stat Exams 09/18/25 21:33 Completed Beta HCG,Quantitative Stat Lab 09/18/25 22:00 Completed CBC Stat Lab 09/18/25 22:00 Completed CMP [Comprehensive Metabolic Panel] Stat Lab 09/18/25 22:00 Completed Urinalysis, C/S if Indicated Stat Lab 09/18/25 22:34 Completed Urine Culture Stat Lab 09/18/25 22:34 Received Vital Signs Vital signs: Vital Signs Temperature 98.0 F 09/18/25 21:31 Pulse Rate 96 09/18/25 21:31 Respiratory Rate 18 09/18/25 21:31 Blood Pressure 112/78 09/18/25 21:31 Pulse Oximetry (%) 99 09/18/25 21:31 Oxygen Delivery Method Room Air 09/18/25 21:31 O2 at 99%on RA and WNLs Vaginal Bleeding MDM Narrative MDM Narrative: 20F at approximately 5 weeks and with no significant PMH presents to ED with pelvic pain and vaginal spotting. Patient was here last week for similar complaint. Patient denies dysuria and vaginal discharge. Blood type from previous visit is RH+. Physical exam reveals well-appearing female. Patient is afebrile, calm, and alert. US reveals L ovarian cyst but no IUP. Beta HCG only increased about 1.75 fold. No leukocytosis or anemia. Cigarette Stamper given. Patient data External records reviewed:: [facility] previous records Clinical information provided by:: patient Social determinants that could affect healthcare access:: none Patient has the following chronic illnesses:: none How is presenting disease/condition affected by chronic disease/condition?: no chronic disease Evaluation data The following diagnostics were reviewed and interpreted by me:: lab results and radiology exam(s) Lab and/or radiology exams considered but not ordered:: ordered Interpretation Summary: above Medications / Prescriptions Medications or Prescriptions considered but not ordered:: not ordered Medication administrations:: n/a Consultations Consultation(s) initiated? (list below): No Diagnosis Vaginal Bleeding Differential Diagnosis: missed , threatened , dysfunctional uterine bleeding, menometrorrhagia, incomplete , ectopic without intrauterine and vaginal bleeding Most likely diagnosis given after review of the tests above:: threatened miscarriage Admission Indicated Admission indicated?: not indicated Admission Request Was there a request for admission?: No Disposition Plan Disposition Plan: Discharge Discharge Attestation Discharge Attestation: The patient and all family members were given an opportunity to ask questions and understood the discharge instructions. Discharge instructions specifically effects, indications for sooner follow up or return to the emergency department, and the expected course of current diagnosis. Patient condition: Stable Discharge Plan Plan Patient Disposition: HOME (Self Care) Discharge Disposition comment: Stable Prescriptions/Referrals Prescriptions/Med Rec: No Action diphenhydramine HCl [Benadryl] 25 mg capsule 25 mg PO Q8H PRN (Reason: allergic reaction) Qty: 20 0RF ibuprofen 600 mg tablet 600 mg PO Q6H PRN (Reason: pain) Qty: 20 0RF baclofen 10 mg tablet 10 mg PO BID PRN (Reason: muscle spasm) Qty: 10 0RF Rx Instructions: No driving Referrals: Raul Matias MD [Primary Care Provider, Family Practice] - In 1 week Problem List Clinical Impression: Threatened miscarriage, Pelvic cyst Patient/Caregiver Discharge Instructions Education Materials: ED Possible Miscarriage ... Additional Instructions: Please follow-up with PCP/OBYGN within 24-48 hours and return immediately if symptoms worsen. Print Language: Amharic Stand Alone Forms: Patient Portal Info Letter PA/INDUSTRIAL PHARMACIST Supervising Physician NICANOR/NOE Supervising Physician: Dr. Schilling
[2025-09-18 22:44] LABS: Basophils # (Auto) 0.1 Thou/mm3 (0.0-0.2); Basophils % (Auto) 1 % (0-2.5); Eosinophils # (Auto) 0.2 Thou/mm3 (0.0-0.5); Eosinophils % (Auto) 3 % (0-10); Hematocrit 36.9 % (36.0-46.0); Hemoglobin 12.5 g/dL (12.0-16.0); Immature Granulocytes Auto 0.01 Thou/mm3 (0.00-0.00); Lymphocytes # (Auto) 2.7 Thou/mm3 (1.0-4.8); Lymphocytes % (Auto) 32 % (10-50); Mean Corpuscular HGB Conc 33.9 g/dl (31.0-37.0); Mean Corpuscular Hemoglobin 30.2 pg (25.0-35.0); Mean Corpuscular Volume 89 fL (80-100); Monocytes # (Auto) 0.7 Thou/mm3 (0.0-0.8); Monocytes % (Auto) 8 % (0-12); Neutrophils # (Auto) 4.9 Thou/mm3 (1.8-7.7); Neutrophils % (Auto) 57 % (37-80); Nucleated Red Blood Cell # 0.00 Thou/mm3 (0.00-0.00); Nucleated Red Blood Cell % 0 /100 WBC (0); Platelet Count 265 Thou/mm3 (140-440); RDW Standard Deviation 41.2 fL (36.4-46.3); Red Blood Count 4.14 Miln/mm3 (4.00-5.20); White Blood Count 8.6 Thou/mm3 (4.5-11.0)
[2025-09-18 23:06] LABS: Collection Type, Urine Clean Catch
[2025-09-18 23:14] LABS: Bacteria,Urine Rare; Bilirubin,Urine Negative (Negative); Blood,Urine 3+ (Negative); Clarity,Urine Clear (Clear/Hazy); Color,Urine Lt-Yellow (Lt Yel-Yel); Glucose, Urine Negative (Negative); Ketones,Urine Negative (Negative); Leukocyte Esterase,Urine Positive (Negative); Nitrite,Urine Negative (Negative); PH,Urine 7.0 (5.0-7.0); Protein,Urine Trace (Neg - Trace); RBC,Urine 98 /hpf (0-3); Specific Gravity,Urine 1.025 (1.001-1.035); Squamous Epithelial Cell,Urine 5 /hpf (0-5); Urobilinogen,Urine Negative mg/dL (0.0-1.0); WBC,Urine 15 /hpf (0-5)
[2025-09-18 23:16] LABS: Alanine Aminotransferase 8 U/L (10-49); Albumin, Serum 4.9 gm/dL (3.5-5.0); Albumin/Globulin Ratio 1.9 (1.2-2.2); Alkaline Phosphatase 65 U/L (46-116); Anion Gap 8 (7-16); Aspartate Amino Transferase 15 U/L (0-34); BUN/Creatinine Ratio 12 Ratio (12-20); Beta HCG,Quantitative 405 mIU/mL (<5.0); Bilirubin,Total 0.4 mg/dL (0.3-1.2); Blood Urea Nitrogen 11 mg/dL (9-23); Calcium 9.4 mg/dL (8.3-10.6); Calcium (Corrected) 9.4 mg/dL (8.5-10.1); Carbon Dioxide 26.4 mMol/L (20.0-31.0); Chloride 106 mMol/L (98-107); Creatinine (Component) 0.9 mg/dL (0.6-1.3); Estimated Creatinine Clearance 89.7 mL/min (>60); Globulin 2.6 gm/dL (2.3-3.5); Glucose 94 mg/dL (74-106); Osmolality,Calculated 278 (275-295); Potassium 3.8 mMol/L (3.4-5.1); Sodium 140 mMol/L (136-145); Total Protein 7.5 gm/dL (5.7-8.2); eGFR > 60 See Note
[2025-09-18 23:17] LABS: Culture Indicated,Urine Yes
== END 2025-09-18 23:56 | disposition home or self-care (01) ==
PROVIDERS: Physician Assistant; Emergency Provider Emergency Medicine; PCP Family Medicine
DX: O20.0 Threatened abortion (principal); Z3A.01 Less than 8 weeks gestation of pregnancy
CPT/HCPCS: 36415; 76817; 80053; 81001; 84702; 85025; 87086; 99282

== ENCOUNTER 2025-09-24 03:59 | Observation (INO) | payer MEDICAID, SELFPAY ==
[2025-09-24] VITALS (14 sets, daily range): BP systolic 96–131; BP diastolic 60–96; PULSE 78–139; RESP 14–32; TEMP 36.1–36.9; O2SAT 96–100; BMI 21.6
--- NOTE | 2025-09-24 04:25 | XR_ITS ---
Examination: OB Transvaginal ultrasound of the pelvis, complete Technique: Transvaginal sonographic images pelvis performed using polo scale imaging Exam date and time: September 24, 2025, 0502 hours INDICATIONS: Pelvic pain today with nausea FINDINGS: Uterus 7.4 cm endometrial stripe 1.1 cm No uterine mass or intrauterine gestation Right ovary 2.6 cm arterial flow Left ovary 7.4 cm arterial flow 6.2 x 5.3 x 6.7 cm cyst with irregular margins and internal echoes septation IMPRESSION: Complex left ovarian cyst with internal echoes and septation 6.2 x 5.3 x 6.7 cm, consider MRI pelvis follow-up pre and postcontrast.
--- NOTE | 2025-09-24 04:27 | PD.EDRME ---
Rapid Medical Screening Exam [facility] Arrival date/time: 09/24/25 03:59 20-year-old female G1, P0 approximately 6 weeks gestation reports with complaints of severe pelvic pain x 1 day Chief Complaint: Abdominal Pain Vital signs: Vital Signs Temperature 98.3 F 09/24/25 04:08 Pulse Rate 100 09/24/25 04:08 Respiratory Rate 19 09/24/25 04:08 Blood Pressure 121/72 09/24/25 04:08 Pulse Oximetry (%) 96 09/24/25 04:08 Oxygen Delivery Method Room Air 09/24/25 04:08 Exam: ? Clinical Impression: ?
[2025-09-24] MEDS: ACETAMINOPHEN 500 MG TABLET 1000 MG PO (04:39)
[2025-09-24 05:42] LABS: Collection Type, Urine Clean Catch
[2025-09-24 05:46] LABS: Beta HCG,Quantitative 760 mIU/mL (<5.0)
--- NOTE | 2025-09-24 06:09 | PRELIM_ITS ---
Pelvic ultrasound (transabdominal and transvaginal). September 24, 2025 at 0502 hours Clinical history: Pelvic pain. Technique: Real-time, grayscale, transabdominal and transvaginal pelvic ultrasound was performed using Duplex scanning including arterial inflow, venous outflow, color and spectral Doppler. Comparison: No prior study is available for comparison. Findings: The uterus measures 7.4 x 3.3 x 4.8 cm. No intrauterine gestation. There is large free fluid in the anterior and posterior cul-de-sac. Right ovary is unremarkable, 2.6 x 1.9 x 2.1 cm. Left ovary 7.4 x 6.0 x 8.7 cm. The ovaries have normal Doppler flow bilaterally. There is a left ovarian 6.2 x 5.3 x 6.7 cm mostly simple cyst with some debris/mural nodularity, possible 2.5 cm daughter cyst. No normal left ovarian tissue is seen. Endometrium is 1.1 cm thick. Impression: No intra or extrauterine gestation. An 6.7 cm mildly complex left ovarian cyst. Recommend surgical consultation and follow-up. Nonspecific large free fluid in the pelvis . Recommend clinical correlation. Consider CT abdomen and pelvis for further evaluation if clinically indicated. Report Electronically Signed By: Piyush Boone 09/24/2025 6:08:58 AM [EST]
--- NOTE | 2025-09-24 06:26 | EDNOTE_ITS ---
ED Abdominal Pain RME/HPI General Chief Complaint: Abdominal Pain Stated complaint: ABD PAIN / NAUSEA X1DAY Time seen by provider: 09/24/25 06:43 Arrival date/time: 09/24/25 03:59 Limitations: no limitations RME / HPI RME / HPI narrative: 09/24/25 03:59 20-year-old female G1, P0 approximately 6 weeks gestation reports with complaints of severe pelvic pain x [address] JEREZ MAIN ED EVALUATION 20 year old female with no stated medical history and currently (approximately 6 weeks gestation age, ) presents to the ED for evaluation of abdominal pain. States the pain began at 8:30PM last night that has remained constant since. Located most to the suprapubic/pelvic region with no radiation that is described as sharp in sensation, rating as severe. Accompanied by on/off vaginal spotting x 2 weeks and nausea though she attributes that being . No other associated symptoms reported. Denies fevers or chills. Patient mentioned she was evaluated here 6 days ago for similar suprapubic/pelvic pain. States she had an ultrasound performed during that time showing a right ovarian cyst that was leaking fluid or blood into my uterus . Mother at bedside states patient has yet to consult with OBGYN though does have her first appointment scheduled tomorrow. Exam: ? Impression: ? Related Data Home Medications ?Medication ?Instructions ?Recorded ?Confirmed folic acid 1 mg tablet 1 mg PO DAILY 09/25/2509/30 vits no.126-ferrous fum 1 tab PO DAILY 09/30/25 28 mg iron-folic acid 800 mcg tablet (Classic ) Previous Rx's ?Medication ?Instructions ?Recorded ondansetron 4 mg disintegrating 4 mg PO Q6H PRN nausea and 09/25/25 tablet vomiting #14 tabs docusate sodium 100 mg capsule 100 mg PO BID #14 caps 10/01/25 (Colace) hydrocodone 5 mg-acetaminophen 325 1 tab PO Q6H PRN Pa in Scale 4-6 10/01/25 mg tablet (Moderate 7 days #10 tabs ibuprofen 800 mg tablet 800 mg PO Q8H PRN pain #20 t abs 10/01/25 Allergies Allergy/AdvReac Type Severity Reaction Status Date / Time apricot Allergy Swelling Verified 09/30/25 09:39 of Lip/Tongue/Throat WASP Allergy SWELLING Uncoded 09/30/25 09:39 Review of Systems Review of Systems Systems Reviewed: All systems reviewed, normal except as documented Past Medical History Social History SMOKING STATUS: Never smoker ED Exam General Limitations: Present no limitations General appearance: Present alert and in distress Head Head exam: Present atraumatic and normocephalic Eye Eye exam: Present normal appearance, PERRL and EOMI ENT ENT exam: Present normal exam and normal oropharynx Neck Neck exam: Present normal inspection Chest Chest inspection: Present normal inspection and symmetric chest wall rise Respiratory Respiratory exam: Absent respiratory distress Cardiovascular Cardiovascular exam: Present regular rate and normal rhythm Abdominal Exam Abdominal exam: Present soft and tenderness (Left lower quadrant tenderness to palpation in the pelvis); Absent distention Extremities Exam Extremities exam: Present normal inspection Neurological Exam Neurological exam: Present alert, oriented X3 and other (No focal neurodeficits) Psychiatric Psychiatric exam: Present normal affect and normal mood Skin Skin exam: Present warm, dry and intact Course Quality Measures none Orders Category Date Time Status CT Screening NOW Care 09/24/25 06:46 Completed Pelvic Exam X1 Care 09/24/25 04:26 Completed US OB transvaginal Stat Exams 09/24/25 04:25 Completed Beta HCG,Quantitative Stat Lab 09/24/25 04:48 Completed Blood Culture (Lab) Stat Lab 09/24/25 07:21 Completed CBC Stat Lab 09/24/25 07:14 Completed CMP [Comprehensive Metabolic Panel] Stat Lab 09/24/25 07:14 Completed Chlamydia/GC/TV - PCR Stat Lab 09/24/25 05:35 Completed INR [Prothrombin Time with INR] Stat Lab 09/24/25 07:14 Completed Type and Screen Stat Lab 09/24/25 07:14 Completed UA, C/S IF [Urinalysis, C/S if Indicated] Stat Lab 09/24/25 05:35 Completed Urine Culture Stat Lab 09/24/25 05:35 Completed Acetaminophen Tab [Tylenol ES Tab] Med 09/24/25 04:25 Discontinued 1,000 mg PO X1 ONE Ringers Lactated 1000 ml [Lactated Ringers] 1,000 ml Med 09/24/25 06:54 Discontinued IV 999 mls/hr cefTRIAXone/D5w 1gm IV premix [Rocephin/D5w 1gm IV Med 09/24/25 07:01 Discontinued premix] 1 gm in 50 ml IV STAT fentaNYL INJ [Sublimaze Inj] Med 09/24/25 06:54 Discontinued 25 mcg IVP X1 ONE fentaNYL INJ [Sublimaze Inj] Med 09/24/25 07:06 Discontinued 50 mcg IVP X1 ONE Vital Signs Vital signs: Vital Signs Temperature 98.3 F 09/24/25 04:08 Pulse Rate 100 09/24/25 04:08 Respiratory Rate 19 09/24/25 04:08 Blood Pressure 121/72 09/24/25 04:08 Pulse Oximetry (%) 96 09/24/25 04:08 Oxygen Delivery Method Room Air 09/24/25 04:08 Pulse ox is 96% on room air which is adequate. Abdominal Pain MDM MDM Narrative MDM Narrative:: Patient is a 20-year-old female with no significant past medical history to the emergency dept with concerns for left pelvic pain and vaginal. Vital signs and exam as listed. Concern for ovarian torsion, ectopic , miscarriage, hemorrhagic cyst among others. Ordered labs, pelvic ultrasound. Labs with beta-hCG 760. 5 days ago it was 405. Pelvic ultrasound did not identify an intrauterine gestation however there is large free fluid in the anterior and posterior cul-de-sac. The left ovary is read as large 7.4 x 6 x 8.7 cm. There is a left large 6.7 cm complex left ovarian cyst. 5 days ago patient had a pelvic ultrasound that was read as having mild free fluid and ovarian cyst at that time was read as 4 cm. Given patient's clinical presentation, symptoms and findings concerned that patient has an ectopic versus a hemorrhagic cyst. Will consult gynecology. Patient is NPO. Provided patient with medication for symptom relief. [id number]: I spoke with OBGYN Dr. Grimm. Discussed patients PMHx, HPI, ED course, exam findings, labs, and radiology results. Will come evaluate the patient in the ED. [id number]: OBGYN Dr. Grimm has evaluated the patient in the ED and states he will perform exploratory lap given labs and exam findings. He will admit the patient to OBGYN services. Patient data External records reviewed:: [facility] previous records Clinical information provided by:: patient Social determinants that could affect healthcare access:: none Patient has the following chronic illnesses:: No chronic medical hx reported Patient is currently , ~ 6 weeks gestational age How is presenting disease/condition affected by chronic disease/condition?: no chronic disease Evaluation data The following diagnostics were reviewed and interpreted by me:: lab results and radiology exam(s) Lab and/or radiology exams considered but not ordered:: None Interpretation Summary: See MDM Medications / Prescriptions Medications or Prescriptions considered but not ordered:: None Medication administrations:: Medication Administration History Discontinued Medications Acetaminophen (Acetaminophen 500 Mg Tablet) 1,000 mg PO X1 ONE Stop: 09/24/25 04:26 Last Admin: 09/24/25 04:39 Dose: 1,000 mg Documented By: JOSH Hydrocodone Bitart/Acetaminophen (Hydrocodone/Apap 5/325 Tablet) 1 tab PO Q6HR PRN PRN Reason: PAIN SCALE 4-6 (Moderate Stop: 09/29/25 21:54 Last Admin: 09/24/25 22:19 Dose: 1 tab Documented By: HIPOLITO Bupivacaine HCl (Bupivacaine Mpf 0.5% 30 Ml Vial) Confirm Administered Dose 30 ml .ROUTE .STK-MED ONE Stop: 09/24/25 15:57 Dexamethasone Sodium Phosphate (Dexamethasone Sod Phos Inj 10 Mg/Ml Vial) Confirm Administered Dose 10 mg .ROUTE .STK-MED ONE Stop: 09/24/25 15:57 Esmolol HCl (Esmolol Inj 10 Mg/Ml Vial 10 Ml) Confirm Administered Dose 100 mg .ROUTE .STK-MED ONE Stop: 09/24/25 15:57 Fentanyl Citrate (Fentanyl Cit Inj 50 Mcg/Ml Amp 2ml) 25 mcg IVP X1 ONE Stop: 09/24/25 06:55 Last Admin: 09/24/25 07:20 Dose: Not Given Documented By: BY Non-Admin Reason: Cancelled by Provider Fentanyl Citrate (Fentanyl Cit Inj 50 Mcg/Ml Amp 2ml) 50 mcg IVP X1 ONE Stop: 09/24/25 07:07 Last Admin: 09/24/25 07:14 Dose: 50 mcg Documented By: BY Fentanyl Citrate (Fentanyl Cit Inj 50 Mcg/Ml Amp 2ml) 50 mcg IVP X1 ONE Stop: 09/24/25 08:44 Last Admin: 09/24/25 08:58 Dose: 50 mcg Documented By: BY Fentanyl Citrate (Fentanyl Cit Inj 50 Mcg/Ml Amp 2ml) Confirm Administered Dose 100 mcg .ROUTE .STK-MED ONE Stop: 09/24/25 15:46 Fentanyl Citrate (Fentanyl Cit Inj 50 Mcg/Ml Amp 2ml) 25 mcg IVP Q5M PRN PRN Reason: PAIN SCALE 1-3 (mild Stop: 09/24/25 18:35 Hydromorphone HCl (Hydromorphone Inj 2 Mg/Ml Vial) 1 mg IVP X1 ONE Stop: 09/24/25 14:15 Last Admin: 09/24/25 14:20 Dose: 1 mg Documented By: Hydromorphone HCl (Hydromorphone Inj 2 Mg/Ml Vial) 0.4 mg IVP Q5M PRN PRN Reason: PAIN SCALE 7-10 (Severe Stop: 09/24/25 18:35 Last Admin: 09/24/25 17:10 Dose: 0.4 mg Documented By: Hydromorphone HCl (Hydromorphone Inj 2 Mg/Ml Vial) 1 mg IVP Q3HR PRN; Protocol PRN Reason: PAIN SCALE 7-10 (Severe Stop: 09/29/25 16:39 Last Admin: 09/24/25 21:27 Dose: 1 mg Documented By: [facility] Admin: 09/24/25 17:54 Dose: 1 mg Documented By: Lactated Ringer's (Lactated Ringers) 1,000 mls @ 999 mls/hr IV .Q1H1M ONE Stop: 09/24/25 07:54 Last Admin: 09/24/25 07:20 Dose: 999 mls/hr Documented By: BY Ceftriaxone Sodium/Dextrose (Rocephin/D5w 1gm Iv Premix) 1 gm in 50 mls @ 100 mls/hr IV STAT STA Stop: 09/24/25 07:30 Last Infusion: 09/24/25 08:01 Dose: Infused Documented By: Admin: 09/24/25 07:31 Dose: 100 mls/hr Documented By: BY Dextrose/Sodium Chloride (D5-1/2ns) 1,000 mls @ 100 mls/hr IV .Q10H MAGGIE Stop: 10/24/25 07:59 Last Admin: 09/24/25 22:19 Dose: 100 mls/hr Documented By: [facility] Infusion: 09/24/25 18:22 Dose: Infused Documented By: [facility] Admin: 09/24/25 08:22 Dose: 100 mls/hr Documented By: BY Piperacillin/Tazobactam/Dextrose (Zosyn) 3.375 gm in 50 mls @ 100 mls/hr IV Q8HR MAGGIE; Protocol Stop: 10/01/25 08:01 Last Admin: 09/25/25 05:19 Dose: 100 mls/hr Documented By: Infusion: 09/24/25 21:58 Dose: Infused Documented By: Admin: 09/24/25 21:28 Dose: 100 mls/hr Documented By: Infusion: 09/24/25 14:50 Dose: Infused Documented By: Admin: 09/24/25 14:20 Dose: 100 mls/hr Documented By: Infusion: 09/24/25 08:58 Dose: Infused Documented By: Admin: 09/24/25 08:21 Dose: 100 mls/hr Documented By: BY Acetaminophen (Ofirmev Inj) Confirm Administered Dose 100 mls @ ud IV .STK-MED ONE Stop: 09/24/25 16:14 Acetaminophen (Ofirmev Inj) 1,000 mg in 100 mls @ 250 mls/hr IV Q6HR [facility] Stop: 09/27/25 17:59 Last Admin: 09/25/25 05:46 Dose: 250 mls/hr Documented By: [facility] Infusion: 09/25/25 00:39 Dose: Infused Documented By: [facility] Admin: 09/25/25 00:15 Dose: 250 mls/hr Documented By: [facility] Infusion: 09/24/25 18:14 Dose: Infused Documented By: [facility] Admin: 09/24/25 17:50 Dose: 250 mls/hr Documented By: Ibuprofen (Ibuprofen Tab 400 Mg Tablet) 800 mg PO Q8HR PRN PRN Reason: PAIN OR FEVER > 101 Stop: 10/24/25 16:39 Ketorolac Tromethamine (Ketorolac Inj 30 Mg/Ml Vial) Confirm Administered Dose 30 mg .ROUTE .STK-MED ONE Stop: 09/24/25 15:57 Ketorolac Tromethamine (Ketorolac Inj 30 Mg/Ml Vial) 30 mg IVP Q6HR PRN PRN Reason: PAIN SCALE 4-10(Mod-Sev Stop: 09/29/25 16:39 Last Admin: 09/24/25 19:46 Dose: 30 mg Documented By: CTF Midazolam HCl (Midazolam Inj 1 Mg/Ml Vial 2 Ml) Confirm Administered Dose 2 mg .ROUTE .STK-MED ONE Stop: 09/24/25 15:47 Morphine Sulfate (Morphine Sulf Inj 4 Mg/Ml Vial) 3 mg IV Q5M PRN PRN Reason: PAIN SCALE 4-6 (Moderate Stop: 09/24/25 18:35 Ondansetron HCl (Ondansetron Inj 2 Mg/Ml Inj 2 Ml) Confirm Administered Dose 4 mg .ROUTE .STK-MED ONE Stop: 09/24/25 15:57 Ondansetron HCl (Ondansetron Inj 2 Mg/Ml Inj 2 Ml) 4 mg IVP X1 ONE Stop: 09/24/25 16:35 Phenylephrine HCl (Phenylephrine Inj In Ns 100 Mcg/Ml 10 Ml Syringe) Confirm Administered Dose 1,000 mcg .ROUTE .STK-MED ONE Stop: 09/24/25 16:03 Propofol (Propofol Inj 10 Mg/Ml Vial 20 Ml) Confirm Administered Dose 200 mg IV .STK-MED ONE Stop: 09/24/25 15:53 Rocuronium [place] (Rocuronium Inj 10 Mg/Ml Vial 10 Ml) Confirm Administered Dose 100 mg .ROUTE .STK-MED ONE Stop: 09/24/25 15:57 Sugammadex Sodium (Sugammadex Inj 100 Mg/Ml 2ml Vial) Confirm Administered Dose 200 mg .ROUTE .STK-MED ONE Stop: 09/24/25 16:02 See above Consultations Consultation(s) initiated? (list below): Yes Consultation #1 (Physician, Specialty, Details): See MDM Diagnosis Differential diagnosis abdominal pain: abdominal pain, acute appendicitis and other (ovarian cyst, , ectopic ) Most likely diagnosis given after review of the tests above:: Ruptured ectopic Pelvic pain Admission Indicated Admission indicated?: indicated Admission Request Was there a request for admission?: Yes Disposition Plan Disposition Plan: Admit Critical Care Time Critical Care Time Critical Care Time: Yes Total Critical Care Time (min.): 36 Attestation: Total critical care time: Approximately?36?minutes Due to a high probability of clinically significant, life threatening deterioration, the patient required my highest level of preparedness to intervene emergently and I personally spent this critical care time directly and personally managing the patient. This critical care time included obtaining a history; examining the patient; pulse oximetry; ordering and review of studies; arranging urgent treatment with development of a management plan; evaluation of patient's response to treatment; frequent reassessment; and, discussions with other providers. This critical care time was performed to assess and manage the high probability of imminent, life-threatening deterioration that could result in multi-organ failure. It was exclusive of separately billable procedures and treating other patients and teaching time. Please see MDM section and the rest of the note for further information on patient assessment and treatment. Discharge Plan Plan Patient Disposition: Other Care w/in Hosp ([facility]) Patient condition on transfer: Stable Problem List Clinical Impression: Ectopic , Pelvic pain Patient/Caregiver Discharge Instructions Discharge Activity: activity as tolerated Other Activity Instructions:: Pelvic rest x 2 weeks. No heavy lifting or heavy exercise x 2 weeks. Diet Instructions: General diet as tolerated
[2025-09-24 06:43] LABS: Bacteria,Urine Rare; Bilirubin,Urine Negative (Negative); Blood,Urine 2+ (Negative); Clarity,Urine Clear (Clear/Hazy); Color,Urine Yellow (Lt Yel-Yel); Glucose, Urine Negative (Negative); Ketones,Urine 1+ (Negative); Leukocyte Esterase,Urine Positive (Negative); Nitrite,Urine Negative (Negative); PH,Urine 6.5 (5.0-7.0); Protein,Urine Trace (Neg - Trace); RBC,Urine 37 /hpf (0-3); Specific Gravity,Urine 1.032 (1.001-1.035); Squamous Epithelial Cell,Urine 5 /hpf (0-5); Urobilinogen,Urine Negative mg/dL (0.0-1.0); WBC,Urine 19 /hpf (0-5)
[2025-09-24 06:47] LABS: Culture Indicated,Urine Yes
[2025-09-24] MEDS: fentaNYL CIT INJ 50 mCg/ML AMP 2ML IVP ×2 (07:14→08:58)
[2025-09-24] MEDS: RINGERS LACTATED 1000 ML 1,000 ML 999 ML IV (07:20)
--- NOTE | 2025-09-24 07:25 | PC.NURSE ---
patient states she is only having little bit of blood when wiping ,
[2025-09-24] MEDS: cefTRIAXone/D5w 1gm IV premix 1 GM/50 ML BAG IV (07:31)
[2025-09-24 07:42] LABS: Basophils # (Auto) 0.0 Thou/mm3 (0.0-0.2); Basophils % (Auto) 0 % (0-2.5); Eosinophils # (Auto) 0.1 Thou/mm3 (0.0-0.5); Eosinophils % (Auto) 1 % (0-10); Hematocrit 35.7 % (36.0-46.0); Hemoglobin 12.4 g/dL (12.0-16.0); Immature Granulocytes Auto 0.05 Thou/mm3 (0.00-0.00); Lymphocytes # (Auto) 1.8 Thou/mm3 (1.0-4.8); Lymphocytes % (Auto) 15 % (10-50); Mean Corpuscular HGB Conc 34.7 g/dl (31.0-37.0); Mean Corpuscular Hemoglobin 30.2 pg (25.0-35.0); Mean Corpuscular Volume 87 fL (80-100); Monocytes # (Auto) 0.7 Thou/mm3 (0.0-0.8); Monocytes % (Auto) 6 % (0-12); Neutrophils # (Auto) 9.8 Thou/mm3 (1.8-7.7); Neutrophils % (Auto) 78 % (37-80); Nucleated Red Blood Cell # 0.00 Thou/mm3 (0.00-0.00); Nucleated Red Blood Cell % 0 /100 WBC (0); Platelet Count 240 Thou/mm3 (140-440); RDW Standard Deviation 39.6 fL (36.4-46.3); Red Blood Count 4.10 Miln/mm3 (4.00-5.20); White Blood Count 12.6 Thou/mm3 (4.5-11.0)
--- NOTE | 2025-09-24 07:59 | ESHP_ITS ---
Documentation for date of: 09/24/25 CONTACT CENTER CONSULTANT - HPI History of Present Illness History of present illness: Growing left ovarian cyst, positive test with abnormal hormone levels The patient is a 20yo female who presents for follow-up of a left ovarian cyst that has been progressively enlarging. She was previously seen on September 18 and has returned today due to concerning changes in her condition. The patient has a left ovarian cyst that has grown significantly in size from 4 centimeters to 7 centimeters, essentially doubling in size over the course of several days. There is ongoing bleeding into the ovary, with the most likely explanation being a ruptured ectopic given her positive test and abnormally rising hormone levels. Her hormone levels have not been doubling appropriately every 48 hours as would be expected in a normal intrauterine . The patient and her mother inquired about the possibility of maintaining a viable , expressing concern about this aspect of her condition. The patient's last oral intake was dinner around 8:30 PM the previous evening. Diagnostic Test Results and Labs: - Serial HCG levels: - 09/12/2025: 265 - 09/18/2025: 405 - 09/24/2025: 760 - Pelvic ultrasound (09/12/2025): - Uterus: 6.5 cm - No intrauterine mass - Endometrial stripe: 0.2 cm - Ovaries: not visualized - Pelvic ultrasound (09/18/2025): - Uterus: 7.3 cm - No intrauterine gestation - Endometrial stripe: 1.2 cm - Right ovary: 3.7 cm with arterial flow - Left ovary: 5.7 cm with arterial flow - Left ovarian cyst: 4.9 x 3.7 x 4.7 cm with internal debris - Mild fluid in pelvis - Pelvic ultrasound (09/24/2025): - Uterus: 7.4 cm - Endometrial stripe: 1.1 cm - No intrauterine gestation - Right ovary: 2.6 cm with arterial flow - Left ovary: 7.4 cm with arterial flow - Left ovarian cyst: 6.2 x 5.3 x 6.7 cm with irregular margins, internal echoes and septations Meds Home Medications and Allergies Allergies Allergy/AdvReac Type Severity Reaction Status Date / Time apricot Allergy Swelling Verified 09/11/25 22:55 of Lip/Tongue/Throat WASP Allergy SWELLING Uncoded 09/11/25 22:55 Exam - CONTACT CENTER CONSULTANT Vital Signs Temp Pulse Resp BP Pulse Ox O2 Del Method 98.4 F 89 16 108/67 98 Room Air 09/24/25 06:07 09/24/25 07:24 09/24/25 07:24 09/24/25 07:24 09/24/25 07:24 09/24/25 07:24 Constitutional Constitutional: no acute distress Routine HEENT Exam Head: Present normocephalic and atraumatic Eye: Present EOMI and PERRL ENT: Present mucous membranes moist Routine Neck Exam Neck: Present supple and trachea midline Routine Respiratory Exam Respiratory: Present chest non-tender, lungs clear, normal breath sounds and no resp distress Routine Cardiovascular Exam Cardiovascular: Present RRR Routine Abdominal Exam Abdominal: Present soft, normoactive bowel sounds and tenderness (Left lower quadrant) Routine Extremities Exam Extremities: Present full ROM Routine Skin Exam Skin: Present intact and dry Routine Neurological Exam Neurological: Present alert, oriented X3 and CN II-XII intact Routine Psychiatric Exam Psychiatric: Present normal affect and normal thought process CONTACT CENTER CONSULTANT - Results Labs 09/24/25 07:14 09/24/25 07:14 Labs: Urine 09/24/25 Range/Units 05:35 Urine Color Yellow (Lt Yel-Yel) Urine Clarity Clear (Clear/Hazy) Urine pH 6.5 (5.0-7.0) Ur Specific [place] 1.032 (1.001-1.035) Urine Protein Trace (Neg - Trace) Urine Glucose (UA) Negative (Negative) Assessment and Plan Assessment and plan (1) Left ovarian without intrauterine : Status: Acute Assessment and plan: Suspected ectopic Assessment: Most likely explanation is ectopic based on positive test with inappropriately rising HCG levels. Serial HCG measurements show suboptimal doubling pattern: 265 on 09-12-25, 405 on 09-18-25, and 760 on 09-24-25, which should have progressed to 400, 800, 1600, 3200 for normal intrauterine . Imaging shows enlarging left ovarian cyst from 4.9 x 3.7 x 4.7 cm on 09-18-25 to 6.2 x 5.3 x 6.7 cm on 09-24-25 with irregular margins, internal echoes and septation, suggesting ongoing bleeding. No intrauterine gestation visualized on serial ultrasounds. Differential diagnosis includes ovarian ectopic versus ruptured hemorrhagic cyst. Risk of rupture and acute decompensation with continued observation given rapid growth from 3 to 8 centimeters over 4-5 days with potential for irreversible ovarian damage. Plan: - Diagnostic laparoscopy with left ovarian cystectomy and possible removal of ectopic if encountered - Informed consent obtained after reviewing management options with patient and mother - Patient placed on add-on surgery schedule for today - Remain NPO until procedure - Observation status until procedure - Attempt to preserve ovary during surgery while removing blood clot and addressing source of bleeding - Discharge home anticipated after procedure (2) Ovarian mass, left: Status: Acute Quality Measures Quality Measures none
[2025-09-24 08:06] LABS: INR 1.0 (0.9-1.3); Prothrombin Time 11.1 Seconds (9.0-12.2)
[2025-09-24 08:12] LABS: Alanine Aminotransferase 8 U/L (10-49); Albumin, Serum 4.9 gm/dL (3.5-5.0); Albumin/Globulin Ratio 1.9 (1.2-2.2); Anion Gap 13 (7-16); Aspartate Amino Transferase 12 U/L (0-34); BUN/Creatinine Ratio 17 Ratio (12-20); Bilirubin,Total 0.7 mg/dL (0.3-1.2); Blood Urea Nitrogen 12 mg/dL (9-23); Calcium 9.9 mg/dL (8.3-10.6); Calcium (Corrected) 9.9 mg/dL (8.5-10.1); Carbon Dioxide 20.9 mMol/L (20.0-31.0); Chloride 106 mMol/L (98-107); Creatinine (Component) 0.7 mg/dL (0.6-1.3); Estimated Creatinine Clearance 115.4 mL/min (>60); Globulin 2.6 gm/dL (2.3-3.5); Glucose 86 mg/dL (74-106); Osmolality,Calculated 278 (275-295); Potassium 3.5 mMol/L (3.4-5.1); Sodium 140 mMol/L (136-145); Total Protein 7.5 gm/dL (5.7-8.2); eGFR > 60 See Note
[2025-09-24] MEDS: PIPER/TAZO 3.375 GM PREMIX 3.375 GM/50 ML BAG IV ×3 (08:21→21:28)
[2025-09-24] MEDS: DEXTROSE 5%-0.45% NS 1,000 ML 100 ML IV ×2 (08:22→22:19)
[2025-09-24 08:32] LABS: Alkaline Phosphatase 59 U/L (46-116)
--- NOTE | 2025-09-24 08:54 | PC.NURSE ---
REPORT GIVEN TO KATHE
[2025-09-24 09:27] LABS: Basophils # (Auto) 0.1 Thou/mm3 (0.0-0.2); Basophils % (Auto) 1 % (0-2.5); Eosinophils # (Auto) 0.1 Thou/mm3 (0.0-0.5); Eosinophils % (Auto) 1 % (0-10); Hematocrit 29.9 % (36.0-46.0); Hemoglobin 10.3 g/dL (12.0-16.0); Immature Granulocytes Auto 0.04 Thou/mm3 (0.00-0.00); Lymphocytes # (Auto) 1.4 Thou/mm3 (1.0-4.8); Lymphocytes % (Auto) 14 % (10-50); Mean Corpuscular HGB Conc 34.4 g/dl (31.0-37.0); Mean Corpuscular Hemoglobin 30.7 pg (25.0-35.0); Mean Corpuscular Volume 89 fL (80-100); Monocytes # (Auto) 0.6 Thou/mm3 (0.0-0.8); Monocytes % (Auto) 6 % (0-12); Neutrophils # (Auto) 7.6 Thou/mm3 (1.8-7.7); Neutrophils % (Auto) 78 % (37-80); Nucleated Red Blood Cell # 0.00 Thou/mm3 (0.00-0.00); Nucleated Red Blood Cell % 0 /100 WBC (0); Platelet Count 195 Thou/mm3 (140-440); RDW Standard Deviation 40.9 fL (36.4-46.3); Red Blood Count 3.36 Miln/mm3 (4.00-5.20); White Blood Count 9.7 Thou/mm3 (4.5-11.0)
[2025-09-24 11:17] LABS: Chlamydia trachomatis PCR Negative (Not Detect); Neisseria Gonorrhoeae DNA PCR Negative (Not Detect); Trichomonas Negative (Negative)
[2025-09-24 13:09] LABS: Basophils # (Auto) 0.0 Thou/mm3 (0.0-0.2); Basophils % (Auto) 0 % (0-2.5); Eosinophils # (Auto) 0.1 Thou/mm3 (0.0-0.5); Eosinophils % (Auto) 1 % (0-10); Hematocrit 30.4 % (36.0-46.0); Hemoglobin 10.6 g/dL (12.0-16.0); Immature Granulocytes Auto 0.02 Thou/mm3 (0.00-0.00); Lymphocytes # (Auto) 1.8 Thou/mm3 (1.0-4.8); Lymphocytes % (Auto) 18 % (10-50); Mean Corpuscular HGB Conc 34.9 g/dl (31.0-37.0); Mean Corpuscular Hemoglobin 31.0 pg (25.0-35.0); Mean Corpuscular Volume 89 fL (80-100); Monocytes # (Auto) 0.6 Thou/mm3 (0.0-0.8); Monocytes % (Auto) 6 % (0-12); Neutrophils # (Auto) 7.3 Thou/mm3 (1.8-7.7); Neutrophils % (Auto) 74 % (37-80); Nucleated Red Blood Cell # 0.00 Thou/mm3 (0.00-0.00); Nucleated Red Blood Cell % 0 /100 WBC (0); Platelet Count 194 Thou/mm3 (140-440); RDW Standard Deviation 40.4 fL (36.4-46.3); Red Blood Count 3.42 Miln/mm3 (4.00-5.20); White Blood Count 9.9 Thou/mm3 (4.5-11.0)
[2025-09-24] MEDS: HYDROmorphone INJ 2 MG/ML VIAL 1 MG IVP ×3 (14:20→21:27)
--- NOTE | 2025-09-24 16:46 | PD.GYNPROC ---
Operative Note - ST[facility] [employer] Procedure Date of procedure: 09/24/25 Procedure Performed: Diagnostic laparoscopy, evacuation of hemoperitoneum Left ovarian cystectomy Indication: 20-year-old with suspected left ovarian ectopic versus hemorrhagic cyst on imaging Anesthesia type: General Procedure description: Informed consent was obtained patient was taken to the operating room.? Identity was confirmed by double identifiers and she was placed on the operating table.? General anesthesia was administered and airway was secured.? Patient was now positioned in the [facility] The abdomen and perineum were prepped in the usual sterile fashion and sterile drapes were applied.? The bladder was emptied using a straight catheter.? A sponge stick was placed in the vagina for uterine manipulation.? Attention was now turned to the patient's abdomen.? A 5 mm incision was made at the base of the umbilicus using a scalpel.? Laparoscopic entry was accomplished under direct visualization using GoPro laparoscopic trocar.? Once intra-abdominal placement was confirmed pneumoperitoneum was insufflated to 15 mm of Hg.? A pair of accessory ports were placed 2 cm superior and medial to the ASIS bilaterally. The camera was now introduced into the abdomen and a preliminary survey was performed.? The uterus and right adnexa were noted to be within normal limits.? On the left side ovarian cyst was noted measuring about 6 to 7 cm in diameter.? The cyst was simple in appearance and was more consistent with a follicular cyst than an ectopic. The Enseal was used to enter the cyst wall and clear straw-colored fluid was removed using the suction irrigation device taking care to not spill the cyst fluid into the peritoneal cavity. Once the cyst was collapsed the wall was placed under traction and it was completely resected, placed inside Endo Catch bag and retrieved through one of the laparoscopic ports.? The peritoneal cavity was irrigated and all irrigation fluid was suctioned out.? The operative site was once again inspected and noted to be hemostatic. The 12 millimeter port site was closed using a Nikita Blackwood device and secured using 0 Vicryl suture. The peritoneum was now copiously irrigated and all irrigation fluid was suctioned out. Again all the pelvic structures were inspected the uterus was noted to be within normal limits, the right ovary and right fallopian tube were noted to be intact and normal in appearance, the left side fallopian tube was normal-appearing and the ovary appeared to be normal with the dissection site at the junction of the utero-ovarian ligament which was hemostatic. All instruments were now withdrawn.? Pneumoperitoneum was desufflated.? The laparoscopic ports were removed.? The skin was now closed using 4-0 Monocryl in a subcuticular fashion.? Local anesthetic was infiltrated into all the surgical sites.? The patient's skin was now cleaned, sterile dressings were applied.? Patient was undraped, and general anesthesia was reversed and she was transferred to the recovery room in a stable and awake condition. Specimen: other (Left ovarian cyst wall) Estimated blood loss (ml): 25 Complications: none Surgical staff Operation Date: 09/24/25 16:30 Case Staff Anesthesiologist: Haseeb Penaloza RN First Assistant: Joaquina White Diagnosis Discharge Diagnosis (1) Pelvic pain: Status: Acute (2) Ectopic : Status: Acute (3) Ovarian mass, left: Status: Acute Problem List Completed Was Problem List Reviewed/Reconciled?: Yes
--- NOTE | 2025-09-24 16:50 | SUR.PHASEI ---
Arrived to recovery [facility] via [facility]. Report received from Cesar BETTS and Dr. Penaloza. Resting with eyes closed but responding to name and questions appropriately. No s/o distress or discomfort.
[2025-09-24] MEDS: HYDROmorphone INJ 2 MG/ML VIAL 0.4 MG IVP (17:10)
--- NOTE | 2025-09-24 17:25 | SUR.PHASEI ---
Transferred to room 366 via [place]. Resting with eyes open. No c/o pain, no s/o distress. Tri pad with minimal red drainage. x3 lap. sites with dermabond C/D/I.
[2025-09-24] MEDS: ACETAMINOPHEN IVPB 1,000 MG/100 ML VIAL 250 MG IV (17:50)
[2025-09-24] MEDS: KETOROLAC INJ 30 MG/ML VIAL IVP (19:46)
--- NOTE | 2025-09-24 21:39 | PC.NURSE ---
complain of can't breath- Applied O2 inh on at 2L/min/nc.
--- NOTE | 2025-09-24 21:46 | EKG_ITS ---
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
--- NOTE | 2025-09-24 21:46 | XR_ITS ---
EXAMINATION: AP chest single view TECHNIQUE: AP portable upright chest single view Date and time: September 24, 2025, 2206 hours INDICATION: Chest pain today. FINDINGS: Normal heart size Lungs are clear. The Ravindra structures are intact IMPRESSION: No active disease
--- NOTE | 2025-09-24 22:09 | PC.NURSE ---
seen and examined by Dr. Grimm w/ orders made and carried out- updated re plan of care.
[2025-09-24] MEDS: HYDROcodone/APAP 5/325 TABLET 1 TAB PO (22:19)
--- NOTE | 2025-09-24 22:19 | ESPR_ITS ---
Documentation for date of: 09/24/25 VENDING MACHINE FILLER Subjective Subjective Interval history: Came in to evaluate patient at the bedside. I first received a call from her nurse that a rapid response was called because patient was having significant pain as well as shortness of breath. After that I was called by the resident physician that patient had significant tenderness around her right incision site. On my evaluation patient's pain is appropriate for her postoperative status. She has mild shortness of breath but patient herself admits that she was more scared than short of breath. Evaluated all incision sites. No evidence of hematoma or any other abnormalities. The right laparoscopic port was where she had the 12 mm port with specimen retrieval as well as Nikita Blackwood closure so that is expected to be more sore than her other laparoscopic ports. Abdominal exam is benign. No signs of peritonitis or peritoneal irritation. Based on the fact that patient had a very clean dissection without any bleeding and disruption of normal anatomic structures I do not anticipate the need for any surgical intervention. Made changes to her pain medication regimen. Patient is very sensitive to IV Dilaudid due to her low body weight and she had somnolence and altered consciousness after receiving 1 mg of Dilaudid given prior to surgery. This might be contributing to her symptoms. Also there is the possibility of some degree of diaphragmatic irritation from laparoscopic insufflation gas. For now we will continue routine postoperative management. Counseled patient that the laparoscopic incision site is going to be painful as she is immediate postop and as the local anesthetic wears off the sensation will be more perceptible than before. Due to the limitation that she is very sensitive to IV narcotics I am limited to using IV Toradol, IV acetaminophen and oral narcotics at low-dose. Patient was also placed on high-dose oral ibuprofen but pharmacy would not permit me to use that along with the Toradol. Due to the situation I am left with very limited pain management options and patient was counseled about this. Exam Vital Signs Temp Pulse Resp BP Pulse Ox O2 Del Method 97.8 F 90 16 106/67 98 Room Air 09/24/25 20:00 09/24/25 20:00 09/24/25 20:00 09/24/25 20:00 09/24/25 20:00 09/24/25 20:00 Urinary Catheter Management Cath placed during this visit: no VENDING MACHINE FILLER - PN: Obj Data Labs 09/24/25 13:02 09/24/25 07:14 Labs: Laboratory Results - last 24 hr 09/24/25 09/24/25 09/24/25 04:48 05:35 07:14 WBC 12.6 H D RBC 4.10 Hgb 12.4 Hct 35.7 L MCV 87 MCH 30.2 MCHC 34.7 RDW Std Deviation 39.6 Plt Count 240 Neut % (Auto) 78 Lymph % (Auto) 15 Dickey % (Auto) 6 Eos % (Auto) 1 Baso % (Auto) 0 Neut # (Auto) 9.8 H Lymph # (Auto) 1.8 Dickey # (Auto) 0.7 Eos # (Auto) 0.1 Baso # (Auto) 0.0 Immature Gran # (Auto) 0.05 H Absolute Nucleated RBC 0.00 Immature Gran % 0 Nucleated RBC % 0 PT 11.1 INR 1.0 Sodium 140 Potassium 3.5 Chloride 106 Carbon Dioxide 20.9 Anion Gap 13 BUN 12 Creatinine 0.7 Estim Creat Clear Calc 115.4 eGFR > 60 BUN/Creatinine Ratio 17 Glucose 86 Calculated Osmolality 278 Calcium 9.9 Corrected Calcium 9.9 Total Bilirubin 0.7 AST 12 ALT 8 L Alkaline Phosphatase 59 Total Protein 7.5 Albumin 4.9 Globulin 2.6 Albumin/Globulin Ratio 1.9 Beta HCG, Quant 760 Ur Collection Type Clean Catch Urine Color Yellow Urine Clarity Clear Urine pH 6.5 Ur Specific [place] 1.032 Urine Protein Trace Urine Glucose (UA) Negative Urine Ketones 1+ A Urine Blood 2+ A Urine Nitrite Negative Urine Bilirubin Negative Urine Urobilinogen (Auto) Negative Ur Leukocyte Esterase Positive Urine RBC 37 H Urine WBC 19 H Ur Squamous Epith Cells 5 Urine Bacteria Rare Ur Culture Indicated? Yes Chlam trachomat DNA PCR Negative N.gonorrhoeae DNA (PCR) Negative Trichomonas DNA Probe Negative Blood Type O Positive Antibody Screen NEGATIVE Blood Bank Wristband ID Yes 09/24/25 09/24/25 08:57 13:02 WBC 9.7 9.9 RBC 3.36 L 3.42 L Hgb 10.3 L D 10.6 L Hct 29.9 L 30.4 L MCV 89 89 MCH 30.7 31.0 MCHC 34.4 34.9 RDW Std Deviation 40.9 40.4 Plt Count 195 D 194 Neut % (Auto) 78 74 Lymph % (Auto) 14 18 Dickey % (Auto) 6 6 Eos % (Auto) 1 1 Baso % (Auto) 1 0 Neut # (Auto) 7.6 7.3 Lymph # (Auto) 1.4 1.8 Dickey # (Auto) 0.6 0.6 Eos # (Auto) 0.1 0.1 Baso # (Auto) 0.1 0.0 Immature Gran # (Auto) 0.04 H 0.02 H Absolute Nucleated RBC 0.00 0.00 Immature Gran % 0 0 Nucleated RBC % 0 0 PT INR Sodium Potassium Chloride Carbon Dioxide Anion Gap BUN Creatinine Estim Creat Clear Calc eGFR BUN/Creatinine Ratio Glucose Calculated Osmolality Calcium Corrected Calcium Total Bilirubin AST ALT Alkaline Phosphatase Total Protein Albumin Globulin Albumin/Globulin Ratio Beta HCG, Quant Ur Collection Type Urine Color Urine Clarity Urine pH Ur Specific [place] Urine Protein Urine Glucose (UA) Urine Ketones Urine Blood Urine Nitrite Urine Bilirubin Urine Urobilinogen (Auto) Ur Leukocyte Esterase Urine RBC Urine WBC Ur Squamous Epith Cells Urine Bacteria Ur Culture Indicated? Chlam trachomat DNA PCR N.gonorrhoeae DNA (PCR) Trichomonas DNA Probe Blood Type Antibody Screen Blood Bank Wristband ID VENDING MACHINE FILLER - A/P Assessment and plan (1) Pelvic pain: Status: Acute (2) Ectopic : Status: Acute (3) Ovarian mass, left: Status: Acute Postoperative Procedures: Procedures Operation Date: 09/24/25 16:30 Actual Procedure Side Surgeon p Diagnostic laparoscopy with left ovarian cystectomy and evacuation of hemoperitoneum Left Ty Grimm MD Time Spent With Patient Time: Total time spent is greater than 50% in coordination of care (as documented) at patient's floor/unit and/or counseling patient: Time with patient: less than 15 minutes
[2025-09-25] VITALS: BP 111/65; PULSE 97; RESP 19; TEMP 36.3; O2SAT 99
[2025-09-25] MEDS: ACETAMINOPHEN IVPB 1,000 MG/100 ML VIAL 250 MG IV ×2 (00:15→05:46)
[2025-09-25 04:00] VITALS: BP 106/61; PULSE 81; RESP 17; TEMP 36; O2SAT 97
[2025-09-25] MEDS: PIPER/TAZO 3.375 GM PREMIX 3.375 GM/50 ML BAG IV (05:19)
[2025-09-25 07:53] VITALS: BP 94/47; PULSE 83; RESP 15; TEMP 36.2; O2SAT 95
--- NOTE | 2025-09-25 09:15 | PD.GYNPROG ---
Documentation for date of: 09/25/25 TERRITORY DEVELOPMENT MANAGER Subjective Subjective Interval history: The patient is a 20-year-old G1, P0 postop day 1 status post diagnostic laparoscopy, removal of left ovarian cyst, and drainage of hemoperitoneum for an ectopic . Dr. Grimm did her surgery. The patient states her surgery was around 3:00 yesterday afternoon. She has been having trouble with pain control. She states last night she was having some shortness of breath and was unsure if it was a panic attack. Dr. Grimm was called to bedside to evaluate the patient and adjusted her pain medication at the time. Today, she is reporting some pain under her diaphragm. She also states she has been nauseous and has not been able to keep down real food. Her vital signs are stable. Her predelivery hemoglobin was 12.4, her postdelivery hemoglobin has been checked twice and is around 10.6. We did have a long discussion about her surgery. I showed her the pictures that were in her chart of her surgery and explained her operation. I also explained to her quantitative hCG is around 760 and it is still unclear where her ectopic was located. It could have been extruded from the fallopian tube or the it could also still be a the fallopian tube. Both fallopian tubes were grossly normal on laparoscopy, so Dr. Grimm did not remove either fallopian tube. The patient needs to be followed carefully as an outpatient until her quantitative hCGs go down to 0. I told her there is a possibility she might need to get a shot of methotrexate if her numbers continue to rise or do not significantly decrease. I reassured the patient that there is no way this is a normal as her numbers have not risen as expected. The patient was told she has a risk of another ectopic of approximately 10% with her next . Today, the patient needs to get up, ambulate, and tolerate some type of diet before we can send her home. She needs to be on oral pain medications. We did discuss the fact that the CO2 gas views and laparoscopy can cause pain radiating to her shoulders and pain in her upper abdomen and this is to be expected. The patient seems reassured this morning. All questions were answered. Subjective: patient reports nausea Exam Vital Signs Temp Pulse Resp BP Pulse Ox O2 Del Method O2 Flow Rate 97.1 F 83 15 94/47 L 95 Nasal Cannula 3 09/25/25 07:53 09/25/25 07:53 09/25/25 07:53 09/25/25 07:53 09/25/25 07:53 09/25/25 07:53 09/25/25 07:53 Narrative Exam Patient is alert and oriented x 3 in no apparent distress. She was sleeping when I went in to examine her. Routine Abdominal Exam Abdominal: Present soft Comments: Abdomen soft nontender she has a 2 cm laparoscopic incision in her right lower quadrant and some ecchymosis and swelling around this incision. Her umbilical incision and her incision in her left lower quadrant are 0.5 cm each and appear to be healing well. Urinary Catheter Management Cath placed during this visit: no TERRITORY DEVELOPMENT MANAGER - PN: Obj Data Labs 09/24/25 13:02 09/24/25 07:14 Labs: Laboratory Results - last 24 hr 09/24/25 09/24/25 09/24/25 05:35 07:14 08:57 WBC 9.7 RBC 3.36 L Hgb 10.3 L D Hct 29.9 L MCV 89 MCH 30.7 MCHC 34.4 RDW Std Deviation 40.9 Plt Count 195 D Neut % (Auto) 78 Lymph % (Auto) 14 Marion % (Auto) 6 Eos % (Auto) 1 Baso % (Auto) 1 Neut # (Auto) 7.6 Lymph # (Auto) 1.4 Marion # (Auto) 0.6 Eos # (Auto) 0.1 Baso # (Auto) 0.1 Immature Gran # (Auto) 0.04 H Absolute Nucleated RBC 0.00 Immature Gran % 0 Nucleated RBC % 0 Chlam trachomat DNA PCR Negative N.gonorrhoeae DNA (PCR) Negative Trichomonas DNA Probe Negative Blood Type O Positive Antibody Screen NEGATIVE Blood Bank Wristband ID Yes 09/24/25 13:02 WBC 9.9 RBC 3.42 L Hgb 10.6 L Hct 30.4 L MCV 89 MCH 31.0 MCHC 34.9 RDW Std Deviation 40.4 Plt Count 194 Neut % (Auto) 74 Lymph % (Auto) 18 Marion % (Auto) 6 Eos % (Auto) 1 Baso % (Auto) 0 Neut # (Auto) 7.3 Lymph # (Auto) 1.8 Marion # (Auto) 0.6 Eos # (Auto) 0.1 Baso # (Auto) 0.0 Immature Gran # (Auto) 0.02 H Absolute Nucleated RBC 0.00 Immature Gran % 0 Nucleated RBC % 0 Chlam trachomat DNA PCR N.gonorrhoeae DNA (PCR) Trichomonas DNA Probe Blood Type Antibody Screen Blood Bank Wristband ID TERRITORY DEVELOPMENT MANAGER - A/P Assessment and plan (1) Pelvic pain: Status: Acute (2) Ectopic : Problem details: Patient is status post laparoscopic removal of peritoneum and left ovarian cystectomy. Her quantitative hCGs are 760. These need to be followed as an outpatient down to 0. Probable discharge later today. The patient needs to follow-up Tuesday in the clinic to see Dr. Grimm. We discussed the distinct possibility that patient might need methotrexate as an outpatient. Status: Acute (3) Ovarian mass, left: Status: Acute Postoperative Procedures: Procedures Operation Date: 09/24/25 16:30 Actual Procedure Side Surgeon p Diagnostic laparoscopy with left ovarian cystectomy and evacuation of hemoperitoneum Left Ty Grimm MD Postoperative status: doing well Postoperative plan: ambulate and advance diet Time Spent With Patient Time: Total time spent is greater than 50% in coordination of care (as documented) at patient's floor/unit and/or counseling patient: Time with patient: less than 15 minutes
--- NOTE | 2025-09-25 09:34 | ESDS_ITS ---
Planned Discharge Date 09/25/25 DS: Providers Provider Date of admission: 09/24/25 07:53 Primary care physician: Raul Matias MD Admitting Provider: Ty Grimm MD Attending Provider on Admission: Ty Grimm MD Attending Provider on DC: Sjuey Carolina MD ([facility]) Discharging Provider: Sujey Carolina MD ([facility]) Anticipated date of discharge: 09/25/25 DS: Diagnosis Discharge Diagnosis (1) Pelvic pain: Status: Acute (2) Ectopic : Status: Acute Assessment & Plan: Status post laparoscopic left ovarian cystectomy, drainage of hemoperitoneum by Dr. Grimm. Discharge instructions given. Patient is discharged home postoperative day #1 in stable condition (3) Ovarian mass, left: Status: Acute Problem List Completed Was Problem List Reviewed/Reconciled?: Yes Hospital Course Hospital Course Hospital course: The patient is a 20-year-old G1, P0 presented to the emergency room yesterday with pelvic pain. Ultrasound revealed free fluid and an enlarged ovarian cyst. Her quantitative hCG was 760. Dr. Grimm admitted the patient through the emergency room. Please see history and physical for further details. The patient is postop day 1 status post diagnostic laparoscopy, removal of left ovarian cyst, and drainage of hemoperitoneum for an ectopic . Dr. Grimm did her surgery. Please see op report for further details. The patient states her surgery was around 3:00 yesterday afternoon. Postoperatively, she has been having trouble with pain control. She states last night she was having some shortness of breath and was unsure if it was a panic attack. Dr. Grimm was called to bedside to evaluate the patient and adjusted her pain medication at the time. Today, she is reporting some pain under her diaphragm. She also states she has been nauseous and has not been able to keep down real food. Her vital signs are stable. Her predelivery hemoglobin was 12.4, her postdelivery hemoglobin has been checked twice and is around 10.6. We did have a long discussion about her surgery. I showed her the pictures that were in her chart of her surgery and explained her operation. I also explained to her quantitative hCG is around 760 and it is still unclear where her ectopic was located. It could have been extruded from the fallopian tube or the it could also still be a the fallopian tube. Both fallopian tubes were grossly normal on laparoscopy, so Dr. Grimm did not remove either fallopian tube. The patient needs to be followed carefully as an outpatient until her quantitative hCGs go down to 0. I told her there is a possibility she might need to get a shot of methotrexate if her numbers continue to rise or do not significantly decrease. I reassured the patient that there is no way this is a normal as her numbers have not risen as expected. The patient was told she has a risk of another ectopic of approximately 10% with her next . Today, the patient needs to get up, ambulate, and tolerate some type of diet before we can send her home. She is voiding normally. She needs to be exclusively on oral pain medications prior to discharge. We did discuss the fact that the CO2 gas views and laparoscopy can cause pain radiating to her shoulders and pain in her upper abdomen and this is to be expected. The patient seems reassured this morning. All questions were answered. Status at Discharge Functional status at discharge: independent ambulation Overall status at discharge: patient is progressing back to baseline Time Spent with Patient Time attestation: Total time spent providing and/or coordinating discharge services: Time spent: Less than 30 minutes Specific discharge activities: Pelvic rest x 2 weeks. Follow-up Tuesday for quantitative hCG and to be seen in the office. No heavy lifting or excessive exercise x 2 weeks. Exam - MEDICAL OFFICE SPECIALIST Vital Signs Temp Pulse Resp BP Pulse Ox O2 Del Method O2 Flow Rate 97.1 F 83 15 94/47 L 95 Nasal Cannula 3 09/25/25 07:53 09/25/25 07:53 09/25/25 07:53 09/25/25 07:53 09/25/25 07:53 09/25/25 07:53 09/25/25 07:53 Constitutional Constitutional: no acute distress Comments: Abdomen soft, some ecchymosis around her incision in her right lower quadrant with a minor amount of swelling, her other incisions are clean, dry and intact. No rebound no guarding. Routine Abdominal Exam Abdominal: Present soft and surgical scars Discharge Plan Plan Patient Disposition: HOME (Self Care) Disposition Comment: Stable Patient condition on transfer: Stable Prescriptions/Referrals Prescriptions/Med Rec: New hydrocodone-acetaminophen 5-325 mg tablet 1 tab PO Q6H MDD 4 PRN (Reason: pain) 5 Days Qty: 20 0RF docusate sodium [Stool Softener] 100 mg capsule 100 mg PO QDAY 30 Days Qty: 30 0RF ondansetron 4 mg tablet,disintegrating 4 mg PO Q6H PRN (Reason: nausea and vomiting) Qty: 14 0RF Continued diphenhydramine HCl [Benadryl] 25 mg capsule 25 mg PO Q8H PRN (Reason: allergic reaction) Qty: 20 0RF ibuprofen 600 mg tablet 600 mg PO Q6H PRN (Reason: pain) Qty: 20 0RF baclofen 10 mg tablet 10 mg PO BID PRN (Reason: muscle spasm) Qty: 10 0RF Rx Instructions: No driving No Action folic acid 1 mg tablet 1 mg PO DAILY Patient Comments: TAKE 1 TABLET BY MOUTH EVERY DAY Classic 28 mg iron- 800 mcg tablet 1 tab PO DAILY Patient Comments: TAKE 1 TABLET BY MOUTH EVERY DAY Referrals: Raul Matias MD [Primary Care Provider, Family Practice] Ty Grimm MD [Physician, GAME DESIGNER/CREATIVE DIRECTOR] Patient/Caregiver Discharge Instructions Meds to Beds: Yes Discharge Activity: activity as tolerated Other Discharge Activity Instructions:: Pelvic rest x 2 weeks. No heavy lifting or heavy exercise x 2 weeks. Other Discharge Diet Instructions: General diet as tolerated Education Materials: Ectopic , After Laparoscopic Treatment ..., Methotrexate Ectopic , Taking Opioid Medicines Print Language: [place] Activity Restrictions/Additional Instructions: Pelvic rest x 2 weeks. Call the office at for a follow-up appointment on September 30. Stand Alone Forms: Alyssa Award Info., Patient Portal Info Letter, Work/Release Restrictions Discharge Order Discharge Orders: Discharge (Routine); Ordered 09/25/25 Ordered By: Sujey Carolina ([facility]) (1) Pelvic pain Qualifiers: Laterality: unspecified laterality Qualified Code(s): R10.20 - Pelvic and perineal pain unspecified side (2) Ectopic Qualifiers: Location of ectopic : unspecified location Intrauterine status: without intrauterine Qualified Code(s): O00.90 - Unspecified ectopic without intrauterine
[2025-09-25 11:40] VITALS: BP 100/54; PULSE 75; RESP 15; TEMP 36.8; O2SAT 96
== END 2025-09-25 13:15 | disposition home or self-care (01) ==
LOC: SERX 07:42 → SERHOLD 08:04 → S3NX 12:18 → SERHOLD 14:12
PROVIDERS: Physician Assistant; Admitting Provider Obstetrics & Gynecology; Emergency Provider Emergency Medicine; PCP Family Medicine; Visit Provider Obstetrics & Gynecology
PROC: (CPT 49320; principal; 2025-09-24 16:15)
DX: N83.12 Corpus luteum cyst of left ovary (principal); N83.02 Follicular cyst of left ovary; O00.202 Left ovarian pregnancy without intrauterine pregnancy
CPT/HCPCS: 58662; 36415; 71045; 76817; 80053; 81001; 81514; 84702; 85025; 85610; 86850; 86900; 86901; 87040; 87086; 87491; 87591; 87661; 93005; 96361; 96365; 96366; 96375; 96376; 99284; A4649; G0378; J0131; J0696; J1100; J1171; J1885; J2250; J2371; J2405; J2543; J2704; J3010; J3490; J7042; J7120; A9270; J1805

== ENCOUNTER 2025-09-30 09:36 | Observation (INO) | payer MEDICAID, SELFPAY ==
[2025-09-30 09:37] VITALS: BMI 21.2
[2025-09-30 10:12] VITALS: BP 107/72; PULSE 103; RESP 16; TEMP 36.9; O2SAT 99
--- NOTE | 2025-09-30 10:15 | XR_ITS ---
Examination: Pelvic ultrasound, transabdominal, complete Technique: Transabdominal ultrasound of the pelvis performed using grayscale imaging Date and time of exam: September 30, 2025, 1146 hours INDICATIONS: Severe pelvic pain and vaginal bleeding today with positive test, history of possible ectopic FINDINGS: Uterus 6.2 cm no intrauterine gestation Ovaries obscured by bowel gas IMPRESSION: Limited study No intrauterine gestation
--- NOTE | 2025-09-30 10:16 | PD.EDRME ---
Rapid Medical Screening Exam RME Arrival date/time: 09/30/25 09:36 20-year-old female with no known medical history presents to the emergency room with a chief complaint of bilateral lower pelvic pain. Patient recently had a laparoscopic surgery to remove an ovarian cyst. I have greeted and performed a focused initial assessment of this patient. A comprehensive ED assessment and evaluation of the patient, analysis of all test results, and completion of the medical decision making process will be conducted by additional ED providers. Chief Complaint: Abdominal Pain Time Seen by Provider: 09/30/25 09:58 Vital signs reviewed by provider: Yes Exam: Bilateral lower pelvic pain GCS 15 Clear bilateral lungs Clinical Impression: UTI/abdominal pain
[2025-09-30 10:36] LABS: Collection Type, Urine Clean Catch
[2025-09-30 10:45] LABS: HCG Qualitative,Urine Positive
[2025-09-30 10:50] LABS: Bilirubin,Urine Negative (Negative); Blood,Urine 3+ (Negative); Clarity,Urine Turbid (Clear/Hazy); Color,Urine Yellow (Lt Yel-Yel); Glucose, Urine Negative (Negative); Ketones,Urine Negative (Negative); Leukocyte Esterase,Urine Positive (Negative); Nitrite,Urine Negative (Negative); PH,Urine 6.0 (5.0-7.0); Protein,Urine 1+ (Neg - Trace); RBC,Urine 1004 /hpf (0-3); Specific Gravity,Urine 1.026 (1.001-1.035); Squamous Epithelial Cell,Urine 3 /hpf (0-5); Urobilinogen,Urine 4.0 mg/dL (0.0-1.0); WBC,Urine 3 /hpf (0-5)
[2025-09-30 11:02] LABS: Basophils # (Auto) 0.1 Thou/mm3 (0.0-0.2); Basophils % (Auto) 1 % (0-2.5); Eosinophils # (Auto) 0.2 Thou/mm3 (0.0-0.5); Eosinophils % (Auto) 3 % (0-10); Hematocrit 33.4 % (36.0-46.0); Hemoglobin 11.4 g/dL (12.0-16.0); Immature Granulocytes Auto 0.03 Thou/mm3 (0.00-0.00); Lymphocytes # (Auto) 1.7 Thou/mm3 (1.0-4.8); Lymphocytes % (Auto) 22 % (10-50); Mean Corpuscular HGB Conc 34.1 g/dl (31.0-37.0); Mean Corpuscular Hemoglobin 30.2 pg (25.0-35.0); Mean Corpuscular Volume 89 fL (80-100); Monocytes # (Auto) 0.6 Thou/mm3 (0.0-0.8); Monocytes % (Auto) 8 % (0-12); Neutrophils # (Auto) 5.0 Thou/mm3 (1.8-7.7); Neutrophils % (Auto) 66 % (37-80); Nucleated Red Blood Cell # 0.00 Thou/mm3 (0.00-0.00); Nucleated Red Blood Cell % 0 /100 WBC (0); Platelet Count 233 Thou/mm3 (140-440); RDW Standard Deviation 40.7 fL (36.4-46.3); Red Blood Count 3.77 Miln/mm3 (4.00-5.20); White Blood Count 7.6 Thou/mm3 (4.5-11.0)
[2025-09-30 11:14] LABS: Alanine Aminotransferase 51 U/L (10-49); Albumin, Serum 4.9 gm/dL (3.5-5.0); Albumin/Globulin Ratio 1.6 (1.2-2.2); Alkaline Phosphatase 57 U/L (46-116); Anion Gap 10 (7-16); Aspartate Amino Transferase 33 U/L (0-34); BUN/Creatinine Ratio 9 Ratio (12-20); Bilirubin,Total 0.5 mg/dL (0.3-1.2); Blood Urea Nitrogen 6 mg/dL (9-23); Calcium 9.5 mg/dL (8.3-10.6); Calcium (Corrected) 9.5 mg/dL (8.5-10.1); Carbon Dioxide 24.3 mMol/L (20.0-31.0); Chloride 107 mMol/L (98-107); Creatinine (Component) 0.7 mg/dL (0.6-1.3); Estimated Creatinine Clearance 115.4 mL/min (>60); Globulin 3.1 gm/dL (2.3-3.5); Glucose 94 mg/dL (74-106); Lipase 29 U/L (12-53); Osmolality,Calculated 278 (275-295); Potassium 4.0 mMol/L (3.4-5.1); Sodium 141 mMol/L (136-145); Total Protein 8.0 gm/dL (5.7-8.2); eGFR > 60 See Note
--- NOTE | 2025-09-30 11:56 | XR_ITS ---
Examination: Transvaginal ultrasound of the pelvis, complete Technique: Transvaginal sonographic images pelvis performed using polo scale imaging Exam date and time: September 30, 2025, 12 0 6:00 p.m. INDICATIONS: Severe pelvic pain and vaginal bleeding today, hCG positive, history ectopic . FINDINGS: Uterus 6.3 cm no intrauterine gestation Endometrial stripe 0.5 cm Right ovary 3.0 cm arterial flow small follicles Left ovary 2.7 cm arterial flow, mass in the left adnexal region, including gestational sac and possible pole 0.4 cm corresponding to 6 weeks 0 days gestational age No cardiac motion IMPRESSION: Findings consistent with left ectopic , clinical correlation advised and follow-up recommended.
[2025-09-30 12:45] VITALS: BP 108/76; PULSE 94; RESP 16; TEMP 36.8; O2SAT 97
--- NOTE | 2025-09-30 14:56 | EDNOTE_ITS ---
ED Abdominal Pain RME/HPI General Chief Complaint: Abdominal Pain Stated complaint: abd pain Time seen by provider: 09/30/25 09:58 Arrival date/time: 09/30/25 09:36 RME / HPI RME / HPI narrative: 09/30/25 09:36 20-year-old female with no known medical history presents to the emergency room with a chief complaint of bilateral lower pelvic pain. Patient recently had a laparoscopic surgery to remove an ovarian cyst. I have greeted and performed a focused initial assessment of this patient. A comprehensive ED assessment and evaluation of the patient, analysis of all test results, and completion of the medical decision making process will be conducted by additional ED providers. DR. SORTO MAIN ED EVALUATION 20 year old female who is s/p laparoscopy left ovarian cystectomy, and drainage of hemoperitoneum by Dr. Grimm on 09/24/2025 presents to the ED for evaluation of abdominal pain. States the pain is similar to the pain she had experienced prior to surgery, described as sharp in sensation that is located most to the left pelvic region, rating 10/10 in severity. Accompanied by vaginal bleeding and nausea. Patient states she took a Bryan yesterday that did not provide any relief. No other associated symptoms reported. Denies fevers, chills, or urinary symptoms. Exam: Bilateral lower pelvic pain GCS 15 Clear bilateral lungs Impression: UTI/abdominal pain Related Data Home Medications ?Medication ?Instructions ?Recorded ?Confirmed folic acid 1 mg tablet 1 mg PO DAILY 09/25/2509/25 vits no.126-ferrous fum 1 tab PO DAILY 09/25/25 28 mg iron-folic acid 800 mcg tablet (Classic ) Previous Rx's ?Medication ?Instructions ?Recorded diphenhydramine HCl 25 mg capsule 25 mg PO Q8H PRN all ergic reaction 03/19/25 (Benadryl) #20 caps baclofen 10 mg tablet 10 mg PO BID PRN muscle spas m #10 04/21/25 tabs ibuprofen 600 mg tablet 600 mg PO Q6H PRN pain #20 t abs 04/21/25 docusate sodium 100 mg capsule 100 mg PO QDAY 30 days #30 caps 09/24/25 (Stool Softener) ondansetron 4 mg disintegrating 4 mg PO Q6H PRN nausea and 09/25/25 tablet vomiting #14 tabs Allergies Allergy/AdvReac Type Severity Reaction Status Date / Time apricot Allergy Swelling Verified 09/30/25 09:39 of Lip/Tongue/Throat WASP Allergy SWELLING Uncoded 09/30/25 09:39 Review of Systems Review of Systems Systems Reviewed: All systems reviewed, normal except as documented Past Medical History Past Medical History NEUROLOGIC: Negative Neurological Disorders CARDIAC: Negative Cardiac Disorders GASTROINTESTINAL: Negative Gastrointestinal Disorders GENITOURINARY: Negative Genitourinary Disorders or Renal Disease MUSCULOSKELETAL: Negative Musculoskeletal Disorders ENDOCRINE: Negative Endocrine Disorders Social History SMOKING STATUS: Never smoker ED Exam Narrative Physical exam: GENERAL APPEARANCE: alert and oriented x 4, well-developed, well-nourished, no acute distress HEENT: Normocephalic, atraumatic; pupils equal, round, reactive to light; EOMI; mucous membranes pink, moist; oropharynx clear NECK: Supple LUNGS: CTABL; no wheezes, no rales, no rhonchi HEART: Regular rate, regular rhythm; normal S1, S2; no murmurs ABDOMEN: non distended; normal BS; soft, minimal suprapubic tenderness, no guarding, no rebound; no masses, no organomegaly, no hernia BACK: no CVA tenderness EXTREMITIES: atraumatic; no edema NEUROLOGIC: awake; alert and oriented x4; cranial nerves II-XII grossly intact; no focal sensory or motor deficits PSYCHIATRIC: appropriate mood and affect SKIN: warm, dry, normal color; no rashes Course Quality Measures none Orders Category Date Time Status US pelvic complete Stat Exams 09/30/25 10:15 Completed US transvaginal Stat Exams 09/30/25 11:56 Completed Beta HCG,Quantitative Stat Lab 09/30/25 10:38 Completed CBC Stat Lab 09/30/25 10:38 Completed CMP [Comprehensive Metabolic Panel] Stat Lab 09/30/25 10:38 Completed HCG Qualitative,Urine Stat Lab 09/30/25 10:29 Completed Lipase Stat Lab 09/30/25 10:38 Completed Type and Screen Stat Lab 09/30/25 16:05 Completed UA [Urinalysis] Stat Lab 09/30/25 10:29 Completed Urine Culture Stat Lab 09/30/25 10:29 Received Morphine* Inj Med 09/30/25 15:25 Discontinued 4 mg IVP X1 ONE Ondansetron Inj [Zofran Inj] Med 09/30/25 15:25 Discontinued 4 mg IVP X1 ONE Vital Signs Vital signs: Vital Signs Temperature 98.5 F 09/30/25 10:12 Pulse Rate 103 H 09/30/25 10:12 Respiratory Rate 16 09/30/25 10:12 Blood Pressure 107/72 09/30/25 10:12 Pulse Oximetry (%) 99 09/30/25 10:12 Oxygen Delivery Method Room Air 09/30/25 10:12 Pulse ox is 99% on room air which is adequate. Abdominal Pain MDM MDM Narrative MDM Narrative:: IErlinda, jazzmine scribing for and in the presence of Dr. Sorto. 1550p: I spoke with OBGYN Dr. Carolina. Discussed patients PMHx, HPI, ED course, exam findings, labs, and radiology results. States she will evaluate the patient in the ED. OBGYN Dr. Carolina has evaluated the patient in the ED and agrees to admit to [facility] services. Patient data External records reviewed:: [facility] previous records (I reviewed operative report from 09/24/2025 ) Clinical information provided by:: patient Social determinants that could affect healthcare access:: none Patient has the following chronic illnesses:: s/p laparoscopy left ovarian cystectomy, and drainage of hemoperitoneum by Dr. Grimm on 09/24/2025 How is presenting disease/condition affected by chronic disease/condition?: exacerbated by Evaluation data The following diagnostics were reviewed and interpreted by me:: lab results and radiology exam(s) Lab and/or radiology exams considered but not ordered:: none Interpretation Summary: Ordering Physician: Elian Cuadra Date of Service: 09/30/25 Procedure(s): US pelvic complete Accession Number(s): [id number] cc: Elian Cuadra; Raul Matias MD; Enrico Winchester MD~ Examination: Pelvic ultrasound, transabdominal, complete Technique: Transabdominal ultrasound of the pelvis performed using grayscale imaging Date and time of exam: September 30, 2025, 1146 hours INDICATIONS: Severe pelvic pain and vaginal bleeding today with positive test, history of possible ectopic FINDINGS: Uterus 6.2 cm no intrauterine gestation Ovaries obscured by bowel gas IMPRESSION: Limited study No intrauterine gestation Dictated By: Enrico Winchester MD Signed By: <Electronically signed by Enrico Winchester MD in OV> 09/30/25 1258 Ordering Physician: Elian Cuadra Date of Service: 09/30/25 Procedure(s): US transvaginal Accession Number(s): [id number] cc: Elian Cuadra; Raul Matias MD; Enrico Winchester MD~ Examination: Transvaginal ultrasound of the pelvis, complete Technique: Transvaginal sonographic images pelvis performed using polo scale imaging Exam date and time: September 30, 2025, 12 0 6:00 p.m. INDICATIONS: Severe pelvic pain and vaginal bleeding today, hCG positive, history ectopic . FINDINGS: Uterus 6.3 cm no intrauterine gestation Endometrial stripe 0.5 cm Right ovary 3.0 cm arterial flow small follicles Left ovary 2.7 cm arterial flow, mass in the left adnexal region, including gestational sac and possible pole 0.4 cm corresponding to 6 weeks 0 days gestational age No cardiac motion IMPRESSION: Findings consistent with left ectopic , clinical correlation advised and follow-up recommended. Dictated By: Enrico Winchester MD Signed By: <Electronically signed by Enrico Winchester MD in OV> 09/30/25 1257 Medications / Prescriptions Medications or Prescriptions considered but not ordered:: None Medication administrations:: Medication Administration History Discontinued Medications Morphine Sulfate (Morphine Sulf Inj 4 Mg/Ml Vial) 4 mg IVP X1 ONE Stop: 09/30/25 15:26 Last Admin: 09/30/25 15:37 Dose: 4 mg Documented By: VAUGHN Ondansetron HCl (Ondansetron Inj 2 Mg/Ml Inj 2 Ml) 4 mg IVP X1 ONE Stop: 09/30/25 15:26 Last Admin: 09/30/25 15:36 Dose: 4 mg Documented By: VAUGHN See above Consultations Consultation(s) initiated? (list below): Yes Consultation #1 (Physician, Specialty, Details): See MDM Diagnosis Differential diagnosis abdominal pain: abdominal pain, calculus of kidney and other (Ovarian cyst, ectopic ) Most likely diagnosis given after review of the tests above:: Pelvic pain Left adnexal mass Admission Indicated Admission indicated?: indicated Admission Request Was there a request for admission?: Yes Admission Attestation Admission request attestation: Discussed case with [] from Hospitalist service regarding admission. Discussed patients ED course, exam findings, labs, and radiology results. The Hospitalist [agrees,declines] to accept the patient for admission. Disposition Plan Disposition Plan: Admit Discharge Plan Plan Patient Disposition: Admit Acute Care w/in Hospital Prescriptions/Referrals Prescriptions/Med Rec: No Action diphenhydramine HCl [Benadryl] 25 mg capsule 25 mg PO Q8H PRN (Reason: allergic reaction) Qty: 20 0RF ibuprofen 600 mg tablet 600 mg PO Q6H PRN (Reason: pain) Qty: 20 0RF baclofen 10 mg tablet 10 mg PO BID PRN (Reason: muscle spasm) Qty: 10 0RF Rx Instructions: No driving docusate sodium [Stool Softener] 100 mg capsule 100 mg PO QDAY 30 Days Qty: 30 0RF folic acid 1 mg tablet 1 mg PO DAILY Patient Comments: TAKE 1 TABLET BY MOUTH EVERY DAY Classic 28 mg iron- 800 mcg tablet 1 tab PO DAILY Patient Comments: TAKE 1 TABLET BY MOUTH EVERY DAY ondansetron 4 mg tablet,disintegrating 4 mg PO Q6H PRN (Reason: nausea and vomiting) Qty: 14 0RF Referrals: Raul Matias MD [Primary Care Provider, Family Practice] - In 1 week Problem List Clinical Impression: Pelvic pain, Adnexal mass Patient/Caregiver Discharge Instructions Print Language: Swedish Stand Alone Forms: Alyssa Award Info., Patient Portal Info Letter
[2025-09-30 15:02] VITALS: BP 101/71; PULSE 77; RESP 17; TEMP 36.9; O2SAT 98
[2025-09-30 15:05] LABS: Beta HCG,Quantitative 990 mIU/mL (<5.0)
[2025-09-30] MEDS: ONDANSETRON INJ 2 MG/ML INJ 2 ML 4 MG IVP ×2 (15:36→19:08)
[2025-09-30] MEDS: MORPHINE SULF INJ 4 MG/ML VIAL IVP ×2 (15:37→19:09)
[2025-09-30 17:27] VITALS: BP 108/74; PULSE 81; RESP 16; TEMP 36.6; O2SAT 97
--- NOTE | 2025-09-30 19:20 | PD.GYNHP ---
Documentation for date of: 09/30/25 PASSPORT APPLICATION EXAMINER - HPI History of Present Illness History of present illness: Ms. DE LA TORRE is a 20 year old G1, P0 with abnormally rising quantitative hCGs. She originally had a quantitative hCG drawn 09/12/2025 that was 265. She had a repeat quantitative hCG on 09/18/2025 that was 405. On 09/24/2025 patient had another quantitative hCG drawn that was 760. At this time, the patient had abdominal pain and an ovarian cyst and some free fluid in her pelvis. As the patient was having pain, Dr. Grimm took her to the operating room and performed a laparoscopy, drainage of hemoperitoneum, and repair of an ovarian cyst. Both fallopian tubes looked normal at the time on laparoscopic visualization so they were both left in situ. The plan was to follow quantitative hCGs. The patient was supposed to follow-up in the office today, but instead presented to the emergency room today at around 10:00 in the morning reporting left-sided abdominal pain. Her quantitative hCG was 990. An ultrasound revealed no free fluid in the pelvis. Her hemoglobin was actually increased compared to discharge 5 days ago and is 11.4. On ultrasound, there is some suggestion of a pole in the left adnexa. Upon looking at the films I am not sure about this. This could easily be some clots or cauterization effect from her recent left adnexal surgery. A progressing to a pole with a quantitative hCG of 990 and normal-appearing fallopian tubes 5 days ago would be unusual. As the patient just underwent laparoscopy 6 days ago, the plan will be to admit the patient for observation, repeat labs and an ultrasound in the morning and consider outpatient treatment with methotrexate versus another laparoscopy. We discussed the possibility that if she needs a repeat laparoscopy, both fallopian tubes might still look normal and if that was the case, I would still recommend we treat with methotrexate and not remove a normal-appearing fallopian tube. Patient's fianc? is at bedside and all questions were answered and they plan to admit patient overnight for observation and further lab work was agreed on. Review of Systems Constitutional Comments: Patient reports bleeding like a period. No fevers no chills. She reports stabbing left-sided abdominal pain. No nausea or vomiting. Past Medical History Past Medical History Comments [facility] COMMENT: Patient has no significant past medical history Surgical history significant for laparoscopy drainage of hemoperitoneum and a left ovarian cystectomy 09/24/2025 Meds Home Medications and Allergies Home Medications ?Medication ?Instructions ?Recorded ?Confirmed ?Type folic acid 1 mg tablet 1 mg PO DAILY 09/25/25 09/25/25 History vits no.126-ferrous fum 1 tab PO DAILY 09/25/25 09/25/25 History 28 mg iron-folic acid 800 mcg tablet (Classic ) Allergies Allergy/AdvReac Type Severity Reaction Status Date / Time apricot Allergy Swelling Verified 09/30/25 09:39 of Lip/Tongue/Throat WASP Allergy SWELLING Uncoded 09/30/25 09:39 Exam - PASSPORT APPLICATION EXAMINER Vital Signs Temp Pulse Resp BP Pulse Ox O2 Del Method 97.9 F 81 16 108/74 97 Room Air 09/30/25 17:27 09/30/25 17:27 09/30/25 17:27 09/30/25 17:27 09/30/25 17:27 09/30/25 17:27 Constitutional Constitutional: no acute distress, thin and cooperative Routine Abdominal Exam Abdominal: Present soft and surgical scars (Small ecchymosis around her incision on her right lower quadrant although there incisions laparoscopically are healing. Abdomen is nondistended slightly tender no rebound no guarding) PASSPORT APPLICATION EXAMINER - Results Labs 09/30/25 10:38 09/30/25 10:38 Labs: Short CBC 09/30/25 Range/Units 10:38 WBC 7.6 (4.5-11.0) Thou/mm3 Hgb 11.4 L (12.0-16.0) g/dL Hct 33.4 L (36.0-46.0) % Plt Count 233 D (140-440) Thou/mm3 BMP 09/30/25 10:38 Sodium 141 Potassium 4.0 Chloride 107 Carbon Dioxide 24.3 BUN 6 L Creatinine 0.7 Glucose 94 Calcium 9.5 Liver Function 09/30/25 Range/Units 10:38 Total Bilirubin 0.5 (0.3-1.2) mg/dL AST 33 (0-34) U/L ALT 51 H (10-49) U/L Alkaline Phosphatase 57 (46-116) U/L Albumin 4.9 (3.5-5.0) gm/dL Urine 09/30/25 Range/Units 10:29 Urine Color Yellow (Lt Yel-Yel) Urine Clarity Turbid A (Clear/Hazy) Urine pH 6.0 (5.0-7.0) Ur Specific [place] 1.026 (1.001-1.035) Urine Protein 1+ A (Neg - Trace) Urine Glucose (UA) Negative (Negative) Assessment and Plan Assessment and plan (1) Pelvic pain: Status: Acute (2) Ectopic : Status: Acute Additional Assessment & Plan Additional Plan: Admit patient overnight for observation. Repeat labs and ultrasound in the morning. Will decide on surgical management versus methotrexate in the morning unless patient has more acute pain tonight in which case we will proceed with surgical evaluation. Quality Measures Quality Measures none (1) Pelvic pain Qualifiers: Laterality: left Qualified Code(s): R10.22 - Pelvic and perineal pain left side (2) Ectopic Qualifiers: Location of ectopic : unspecified location Intrauterine status: without intrauterine Qualified Code(s): O00.90 - Unspecified ectopic without intrauterine
[2025-09-30 19:56] VITALS: BP 110/66; PULSE 71; RESP 16; O2SAT 95
[2025-09-30] MEDS: KCL 20 mEq/L in D5-1/2NS 20 MEQ/1,000 ML BAG 125 MEQ IV (20:24)
[2025-09-30 21:22] VITALS: BMI 20.5
[2025-09-30] MEDS: MORPHINE SULF INJ 4 MG/ML VIAL 2 MG IV (22:08)
[2025-09-30 22:12] VITALS: BP 106/63; PULSE 76; RESP 18; TEMP 36.3; O2SAT 97
[2025-10-01] VITALS (13 sets, daily range): BP systolic 88–139; BP diastolic 56–82; PULSE 74–108; RESP 12–20; TEMP 36–36.6; O2SAT 93–99
[2025-10-01] MEDS: MORPHINE SULF INJ 4 MG/ML VIAL IVP (00:37)
[2025-10-01] MEDS: MORPHINE SULF INJ 4 MG/ML VIAL 2 MG IVP (02:23)
--- NOTE | 2025-10-01 02:28 | PC.NURSE ---
Patient was crying in pain, stated 10/10 on her left lower abdomen. Morphine 4 mg was just given around 0037. MD (Dr. Carolina) was called and notified. MD stated will come and see the patient.
--- NOTE | 2025-10-01 02:48 | EVENTNT_ITS ---
Documentation for date of: 10/01/25 Event Note Event Note: Patient is a 20-year-old G1, P0 with a suspected ectopic . She was placed in observation overnight as patient just went to the OR about 6 days ago for a laparoscopic unilateral ovarian cystectomy and evacuation of hemo peritoneum. Patient's quantitative hCG at the time was 760 on admission last evening it is 990. The plan was to observe the patient overnight and repeat labs and ultrasound and possible treat the patient with methotrexate as an outpatient. However, the patient is having increasing left lower quadrant pain overnight requiring 3 doses of IV morphine. At bedside, the patient is still extremely uncomfortable and pointing to her left lower side close to her groin saying it hurts . The patient is consented for a laparoscopic unilateral salpingectomy possible unilateral oophorectomy versus ovarian cystectomy, possible laparotomy. As patient was just given morphine, her mother was placed on speaker phone. Her mother's name is Citlaly. Her mother verbally consented for the procedure for the patient. The risks of the procedure were discussed with the patient and her mother including the risk of bleeding, infection, blood transfusion, damage to bowel, bladder, blood vessels or other organs. Prolonged hospital stay and further surgery should any complications occur. All questions were answered and all consents were signed. The OR team has been called in for emergent surgery.
--- NOTE | 2025-10-01 03:45 | PC.NURSE ---
Patient to surgery around 0330 AM via gurney for laparoscopic unilateral salpingectomy possible unilateral oophorectomy versus ovarian cystectomy, possible laparotomy.
--- NOTE | 2025-10-01 05:12 | ESOP_ITS ---
Operative Note - [facility] Procedure Date of procedure: 10/01/25 Procedure Performed: Laparoscopic left salpingectomy Indication: Patient is a 20-year-old with abnormally increasing quantitative hCGs. She was taken to the operating room on 09/24/[address] Grimm. At the time her quant was around 720. She had a large left ovarian cyst and some blood in her abdomen but both fallopian tubes appeared normal. He performed a laparoscopic left ovarian cystectomy and evacuation of hemoperitoneum She was sent home for close follow-up. She was told if her numbers continue to climb, she might need treatment with methotrexate. The patient was to have a follow-up appointment 09/30/2025 in the clinic, however, she presented to the ER with increasing left lower quadrant pain. Her hemoglobin was stable. Ultrasound did not reveal free fluid and suggested some cystic mass on the left adnexa. As per quantitative hCG was only up to 990, the plan was to admit the patient for observation, monitor her pain , and repeat labs and ultrasound in the morning. She was stable, the plan was to give her methotrexate as an outpatient. The patient's pain became more acute overnight requiring IV doses of morphine, and she was consented for diagnostic laparoscopy possible unilateral salpingectomy versus oophorectomy versus ovarian cystectomy. Pre-Op diagnosis: Suspected ectopic Post-Op diagnosis: Left ectopic Anesthesia type: General Procedure description: After obtaining informed consent, the patient was brought back to the operating room and general anesthesia administered. She was then prepped and draped in dorsal lithotomy position using John stirrups in a normal sterile fashion. Her bladder was emptied with an in and out catheter. The patient was given 2 g of Ancef by anesthesia. A speculum was inserted into the patient's vagina and a uterine manipulator inserted. The surgeons gloves were changed and attention was turned to the patient's abdomen where all the prior skin glue had been removed from her previous incisions. A 5 mm incision was made in her periumbilical fold and a Veress needle introduced. Correct intra-abdominal placement was confirmed via the water drop test. The abdomen was allowed to insufflate with 3 L of CO2 gas. A 5 mm trocar and sleeve were introduced through the umbilical incision along with a 5 mm laparoscopic camera, and pictures taken of the above findings. A 5 mm incision was made in her left lower quadrant and a 5 mm trocar and sleeve introduced under direct visualization. A blunt probe was placed through the instrument port. The left fallopian tube was identified and found to contain an ectopic located in the medial portion of the tube. The fallopian tube had not ruptured. The blunt probe was removed and a [place] irrigation device was inserted and the blood removed from the patient's posterior cul-de-sac. 30 cc of blood and clots were removed. The pelvis was copiously irrigated and surveyed and again the only abnormality that was found was the ectopic in the left fallopian tube. A 12 mm incision was made in her right lower quadrant and a 12 mm trocar and sleeve introduced under direct visualization. An atraumatic grasper was used to belt picker the left fallopian tube at its fimbriated end. A harmonic scalpel was then placed through the left instrument port and the fallopian tube removed in its entirety from the fimbriated end all the way to the cornual end. An Endo Catch bag was placed through the right lower quadrant port and the entire fallopian tube placed in the Endo Catch bag and removed. The pelvis was then copiously irrigated with the [place] irrigation system and pictures taken of the post salpingectomy findings. Excellent hemostasis was noted. The fascia of the 12 mm incision was closed using a Nikita Blackwood device with 0 Vicryl. All the instrument ports were then removed from the patient's abdomen and the CO2 gas allowed to resolve. All incisions were closed using subcuticular sutures of 4-0 Monocryl. All instrumentation was removed the patient's vagina and the tenaculum site noted to be hemostatic. The procedure was then terminated. The patient tolerated the procedure well, sponge, lap, needle and instrument counts were correct x 2. The patient went to the recovery awake and in stable condition. Pathology was left fallopian tube containing suspected ectopic . Fluids: crystalloid Fluid amount (mL): 1,000 Urine output (mL): 25 Specimen: left tube Implants: None Estimated blood loss (ml): 40 Findings: Distended medial portion of left fallopian tube with thick suspected ectopic . 30 to 40 cc of old blood in her pelvis. Normal right ovary and tube. Left ovary with signs of recent surgery and old blood present. Normal uterus. Normal appendix. Grossly normal liver. Complications: none Surgical staff Operation Date: 10/01/25 03:45 Case Staff Anesthesiologist: Franklin Crockett RNdobby loom weaver: Tiarra Cramer Diagnosis Discharge Diagnosis (1) Adnexal mass: Status: Acute (2) Pelvic pain: Status: Acute (3) Ectopic : Status: Acute Problem details: Patient is status post laparoscopic removal of left fallopian tube. Plan will be to admit the patient for observation. When she ambulates, tolerates a general diet, is passing flatus and voiding patient can be discharged home patient. Patient needs to be on oral pain medication. She will follow-up in clinic in 2 weeks. Problem List Completed Was Problem List Reviewed/Reconciled?: Yes (2) Pelvic pain Qualifiers: Laterality: left Qualified Code(s): R10.22 - Pelvic and perineal pain left side (3) Ectopic Qualifiers: Location of ectopic : unspecified location Intrauterine status: without intrauterine Qualified Code(s): O00.90 - Unspecified ectopic without intrauterine
--- NOTE | 2025-10-01 05:32 | SUR.PHASEI ---
0458: pt arrived to PACU via gurney, breathing unlabored, dressing to abdomen clean, dry, and intact with peripad in place-clean and dry, report from Alisha BETTS and Dr Crockett 0520: pt tolerating ice chips without difficulty swallowing or n/v 0532: pt drowsy but arouses easily and responds appropriately to questions, breathing unlabored, dressing to abdomen clean, dry, and intact with peripad in place-clean and dry, report called to Dianne BETTS, pt transferred to room at this time.
--- NOTE | 2025-10-01 06:16 | PC.NURSE ---
Patient back to med surg unit from surgery via gurney. Patients still sedated from anesthesia.
[2025-10-01 06:50] LABS: Beta HCG,Quantitative 553 mIU/mL (<5.0)
[2025-10-01 08:34] LABS: Hematocrit 30.5 % (36.0-46.0); Hemoglobin 10.3 g/dL (12.0-16.0)
[2025-10-01] MEDS: HYDROcodone/APAP 5/325 TABLET 1 TAB PO (10:15)
[2025-10-01] MEDS: KETOROLAC 10 MG TABLET PO (13:27)
[2025-10-01] MEDS: MORPHINE SULF INJ 4 MG/ML VIAL 2 MG IV (14:41)
--- NOTE | 2025-10-01 14:58 | PD.GYNDS ---
Planned Discharge Date 10/01/25 DS: Providers Provider Date of admission: 09/30/25 18:21 Primary care physician: Raul Matias MD Admitting Provider: Sujey Caorlina MD ([facility]) Attending Provider on Admission: Ty Grimm MD Attending Provider on DC: Erika Zarate MD Discharging Provider: Erika Zarate MD DS: Diagnosis Discharge Diagnosis (1) Ectopic : Status: Acute Problem List Completed Was Problem List Reviewed/Reconciled?: Yes Hospital Course Hospital Course Hospital course: Ms. DE LA TORRE is a 20 year old G1, P0 with abnormally rising quantitative hCGs. She originally had a quantitative hCG drawn 09/12/2025 that was 265. She had a repeat quantitative hCG on 09/18/2025 that was 405. On 09/24/2025 patient had another quantitative hCG drawn that was 760. At this time, the patient had abdominal pain and an ovarian cyst and some free fluid in her pelvis. As the patient was having pain, Dr. Grimm took her to the operating room and performed a laparoscopy, drainage of hemoperitoneum, and repair of an ovarian cyst. Both fallopian tubes looked normal at the time on laparoscopic visualization so they were both left in situ. The plan was to follow quantitative hCGs. The patient was supposed to follow-up in the office today, but instead presented to the emergency room today at around 10:00 in the morning reporting left-sided abdominal pain. Her quantitative hCG was 990. An ultrasound revealed no free fluid in the pelvis. Her hemoglobin was actually increased compared to discharge 5 days ago and is 11.4. On ultrasound, there is some suggestion of a pole in the left adnexa. Upon looking at the films I am not sure about this. This could easily be some clots or cauterization effect from her recent left adnexal surgery. A progressing to a pole with a quantitative hCG of 990 and normal-appearing fallopian tubes 5 days ago would be unusual. As the patient just underwent laparoscopy 6 days ago, the plan will be to admit the patient for observation, repeat labs and an ultrasound in the morning and consider outpatient treatment with methotrexate versus another laparoscopy. We discussed the possibility that if she needs a repeat laparoscopy, both fallopian tubes might still look normal and if that was the case, I would still recommend we treat with methotrexate and not remove a normal-appearing fallopian tube. Patient's fianc? is at bedside and all questions were answered and they plan to admit patient overnight for observation and further lab work was agreed on. -- Jasmyne developed more pain in the night and ultimately Dr. Carolina took her to the OR where left ectopic was noted and she underwent an uncomplicated laparoscopic left salpingectomy. She has had an uncomplicated post-operative course today and is meeting all milestones. She is ambulating without lightheadedness, tolerating regular diet no n/v, spontaneously voiding without issue. She has no chest pain or shortness of breath. No fevers or chills. Pain well controlled. Vitals normal, benign exam. Hemodynamically stable with no evidence of infection. Post-op Hgb 10.3. 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 Extremities: no pain with palpation of calves Discharge Plan Plan Patient Disposition: HOME (Self Care) Patient condition on transfer: Stable Prescriptions/Referrals Prescriptions/Med Rec: New hydrocodone-acetaminophen 5-325 mg Tablet 1 tab PO Q6H MDD 4 tablets PRN (Reason: Pain Scale 4-6 (Moderate) 7 Days Qty: 10 0RF docusate sodium [Colace] 100 mg capsule 100 mg PO BID Qty: 14 0RF ibuprofen 800 mg tablet 800 mg PO Q8H PRN (Reason: pain) Qty: 20 0RF Continued folic acid 1 mg tablet 1 mg PO DAILY Patient Comments: TAKE 1 TABLET BY MOUTH EVERY DAY Classic 28 mg iron- 800 mcg tablet 1 tab PO DAILY Patient Comments: TAKE 1 TABLET BY MOUTH EVERY DAY ondansetron 4 mg tablet,disintegrating 4 mg PO Q6H PRN (Reason: nausea and vomiting) Qty: 14 0RF Discontinued diphenhydramine HCl [Benadryl] 25 mg capsule 25 mg PO Q8H PRN (Reason: allergic reaction) Qty: 20 0RF ibuprofen 600 mg tablet 600 mg PO Q6H PRN (Reason: pain) Qty: 20 0RF baclofen 10 mg tablet 10 mg PO BID PRN (Reason: muscle spasm) Qty: 10 0RF Rx Instructions: No driving docusate sodium [Stool Softener] 100 mg capsule 100 mg PO QDAY 30 Days Qty: 30 0RF Referrals: [facility] ([facility]),Suejy Alvarez MD [Physician, ASSISTANT FARM OPERATIONS MANAGER] Raul Matias MD [Primary Care Provider, Family Practice] Patient/Caregiver Discharge Instructions Discharge Activity: activity as tolerated and other Other Discharge Activity Instructions:: vaginal rest and no heavy lifting more than 20 pounds for [address] while taking narcotic. keep incisions clean and dry. Education Materials: Ectopic , After Laparoscopic Treatment ... Print Language: Italian Activity Restrictions/Additional Instructions: follow up with Dr. Carolina in clinic on 10/08 or 10/10, call clinic to schedule appointment Stand Alone Forms: Alyssa Award Info., Patient Portal Info Letter, Work/Release Restrictions Discharge Order Discharge Orders: Discharge (Routine); Ordered 10/01/25 Ordered By: Erika Zarate (1) Ectopic Qualifiers: Location of ectopic : unspecified location Intrauterine status: without intrauterine Qualified Code(s): O00.90 - Unspecified ectopic without intrauterine
--- NOTE | 2025-10-01 15:30 | PC.NURSE ---
Per MD Jenkins stop all iv pain meds and continue with only po once pain is under control this evening pt may be discharged. Hold discharge for now for a few hours.
[2025-10-01] MEDS: IBUPROFEN TAB 400 MG TABLET 800 MG PO (16:24)
== END 2025-10-01 17:44 | disposition home or self-care (01) ==
LOC: SERX 18:10 → SERHOLD 10-01 00:21 → S3SX 10-01 02:57 → SERHOLD 10-02 09:45
PROVIDERS: Nurse Practitioner Family; Obstetrics & Gynecology; Admitting Provider Obstetrics & Gynecology; Emergency Provider Emergency Medicine; PCP Family Medicine; Visit Provider Obstetrics & Gynecology
PROC: 10T24ZZ Resection of Products of Conception, Ectopic, Percutaneous Endoscopic Approach (ICD-10-PCS; CPT 59150; principal; 2025-10-01 03:30)
DX: O00.102 Left tubal pregnancy without intrauterine pregnancy (principal); N83.12 Corpus luteum cyst of left ovary; N83.02 Follicular cyst of left ovary
CPT/HCPCS: 59151; 36415; 76830; 76856; 80053; 81001; 81025; 83690; 84702; 85014; 85018; 85025; 86850; 86900; 86901; 87081; 87086; 96374; 96375; 96376; 99283; A4217; A4649; G0378; J0131; J0690; J1100; J2270; J2371; J2405; J2704; J2710; J3010; J3480; J3490; A9270; J1596

== ENCOUNTER 2025-10-25 13:01 | Outpatient (AMB) | payer MEDICAID, SELFPAY ==
[2025-10-25 13:13] VITALS: BP 103/67; PULSE 90; RESP 18; TEMP 36.6; O2SAT 99; BMI 20.7
--- NOTE | 2025-10-25 13:13 | GYNCLNT_ITS ---
Vital Signs 10/25/25 13:13 Height 1.65 m Height Method Stated Weight 56.472 kg Weight Measurement Method Standing Scale BMI 20.7 BP 103/67 Blood Pressure Source Automatic Cuff Blood Pressure Location Right Upper Arm Position Sitting Respiration 18 Pulse 90 Pulse Source Monitor Temp 97.9 F Temp Source Temporal Artery Scan Pulse Oximetry (%) 99 Oxygen Delivery Method Room Air Allergies/Home Meds Allergies & Medications Allergies apricot Allergy (Verified 10/25/25 13:15) Swelling of Lip/Tongue/Throat WASP Allergy (Uncoded 10/25/25 13:15) SWELLING Medication Reconciliation folic acid 1 mg tablet 1 mg PO DAILY 09/25/25 [History Confirmed 10/25/25] ondansetron 4 mg disintegrating tablet 4 mg PO Q6H PRN nausea and vomiting #14 tabs 09/25/25 [Rx Confirmed 10/25/25] vits no.126-ferrous fum 28 mg iron-folic acid 800 mcg tablet (Classic ) 1 tab PO DAILY 09/25/25 [History Confirmed 10/25/25] docusate sodium 100 mg capsule (Colace) 100 mg PO BID #14 caps 10/01/25 [Rx C onfirmed 10/25/25] ibuprofen 800 mg tablet 800 mg PO Q8H PRN pain #20 tabs 10/01/25 [Rx Confirmed 10/25/25] Intake Visit Data Collection New Patient or Established: Established Patient (seen at [facility] within 3 years) Reason for Visit:: post op Seen by Clinical Staff ONLY (RN/MA): No Track Inspecting Supervisor Required: No Do You Feel Safe at Home: Yes Authorities Contacted: N/A PCP or OBGYN visit in last 3 months: Yes Date of Last PCP or OBGYN visit: 10/10/25 Hx Now: No Are you currently on any form of Control: No Last menstrual period: 10/23/25 Pain Present Currently: No Pain Scale Used: Quintanilla-Gaines/Numerical Pain scale:: 0 Smoking Status Smoking Status: Never smoker Immunizations Flu Vaccine in the Last 12 Months: No Flu Vaccine Exclusion Criteria: No 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 Grimm 10/01/25 laparoscopic left salpingectomy [facility] Dr. Nasra Carolina with drainage of hemoperitoneum for ruptured ectopic Other Relevant History: The patient denies any significant past medical history including asthma diabe violeta or hypertension Questionnaires Covid-19 Vaccine Questionnaire Has patient been vacinated for Covid-19 Have you been vacinated for Covid-19: No PHQ-9 PHQ-2 Over the last 2 weeks, how often have you been bothered by any of the following problems? 1. Little interest or pleasure in doing things: not at all 2. Feeling down, depressed, or hopeless: not at all Total score: 0 PHQ-9 3. Trouble falling or staying asleep, or sleeping too much: Not at all 4. Feeling tired or having little energy: Not at all 5. Poor appetite or overeating: Not at all 6. Feeling bad about yourself - or that you are a failure or have let yourself or your family down: Not at all 7. Trouble concentrating on things, such as reading the newspaper or watching television: Not at all 8. Moving or speaking so slowly that other people could have noticed? - Or the opposite - being so fidgety or restless that you have been moving around a lot more than usual: not at all 9. Thoughts that you would be better off or of hurting yourself in some way: Not at all Total score: 0 If you checked off any problems, how difficult have these problems made it for you to do your work, take care of things at home, or get along with other people?: not difficult at all Source: Developed by Drs. Donn Silverman, Kadie Jha, Fadi Johnson and colleagues, with an educational paula from [email or web address]. Depression screen completed yes Social History Living Situation History Marital Status: Single Lives With: Family Housing: House Tobacco History Smoking Status: Never smoker Second Hand Smoke Exposure: No Alcohol History Alcohol Intake: Never Domestic Abuse History Do You Feel Safe at Home: Yes History of Present Illness HPI Narrative The patient is a 20-year-old -0-1-0 who originally presented to the emergency room 09/24/2025 with abnormally rising quant hCGs and abdominal pain. She also had a large ovarian cyst and blood in her abdomen. Her quantitative hCG was [address] Grimm performed a laparoscopy and both fallopian tubes appeared normal. She had a large left ovarian cyst and blood in her abdomen. He drained the blood and drained the ovarian cyst and the plan was to follow up with serial quantitative hCGs. She presented September 30, 2025 with increasing abdominal pain. Her quantitative hCG was up to 990 and it appeared that she had more free fluid in her abdomen. As patient got increasingly uncomfortable in the ER, the decision was made to proceed with another laparoscopy. On laparoscopic visualization, fimbriated end the left fallopian tube was distended and draining blood from the end . She underwent a laparoscopic left salpingectomy and was discharged home 10/01/2025 in stable condition. Today, the patient she denies heavy bleeding, nausea, vomiting, is doing well. Fevers or chills. She is almost 3 weeks postop. She would like to try for another . She was told about the increased risk of ectopic approximately 10 % with her next . She can go back to all normal activities. I recommended she await for another for at least 2-3 normal cycles. Review of Systems Review of Systems Narrative Review of Systems: Patient is alert and orient x 3 in no apparent distress. Abdomen is soft nontender nondistended All her laparoscopic incisions are healed well. Exam Narrative Physical exam: Incisions are all clean dry and intact General Limitations: no limitations General Appearance: alert, in no apparent distress, comfortable, cooperative, healthy appearing and well groomed Office Procedures [facility] LOC & Office Proc's Nursing/Assessment Patient Status: Established Patient [facility] Nursing Assessment: Medication Reconciliation, Update PMH in EMR and Vital Signs [facility] Coordination of Care: Complex Care and Chronic Disease 1-5, Education Complex Pt/Fam, Lab and Imaging orders, Results/Orders obtained and Staff clarify orders Established Patient Charge Established Patient Point Assignment: 105 Established Patient Point Charge: EP Level 3 (80-115) Assessment & Plan Diagnosis / Problem List (1) Ectopic : Status: Acute Qualifiers: Location of ectopic : tubal Intrauterine status: without intrauterine Laterality: left Qualified Code(s): O00.102 - Left tubal without intrauterine Assessment and Plan: Patient is here postop day 20 s/p laparoscopic left salpingectomy for ectopic . She can go back to all normal activities including intercourse. She should await another for 3 months. She has a 10% chance of a repeat topic in the future. All questions were answered. Patient was shown pictures of her surgery. She is to call with a positive test so we can draw quantitative hCGs on her.
== END 2025-10-25 14:21 | disposition home or self-care (01) ==
LOC: HODSOBC 13:01
PROVIDERS: PCP Family Medicine; Referring Provider Family Medicine; Supervising Provider Obstetrics & Gynecology; Visit Provider Obstetrics & Gynecology
DX: O00.90 Unspecified ectopic pregnancy without intrauterine pregnancy (principal); Z90.79 Acquired absence of other genital organ(s); Z91.038 Other insect allergy status; Z91.018 Allergy to other foods
CPT/HCPCS: 99213; G0463